=== PATIENT | female | born 1965 | race Two or more races ===

== ENCOUNTER 2021-11-10 16:16 | Emergency (ER) | payer OTHER, SELFPAY ==
--- NOTE | ~2021-11-10 | XR_ITS ---
EXAMINATION: XR knee RT 4V, XR knee LT 4V CLINICAL INFORMATION: Reason for Exam knee pain COMPARISON: None. TECHNIQUE: 4 views bilateral knees FINDINGS: Right knee: Assessment on the lateral view is somewhat limited due to obliquity of the projection. No large joint effusion. No acute fracture or dislocation. Moderate medial compartment joint space narrowing with subchondral sclerosis and abundant tricompartmental osteophyte formation. No osseous lesion. Left knee: Limited assessment on the lateral view due to overlying soft tissue. No large joint effusion. No fracture or dislocation. Severe medial compartment joint space narrowing with mgvn-ne-tqty apposition, subchondral sclerosis, subchondral cystic change, and abundant tricompartmental osteophyte formation. No osseous lesion. XR/XR knee LT 4V IMPRESSION: 1. No acute osseous injury identified. No large knee joint effusions. 2. Advanced tricompartmental knee joint osteoarthropathy bilaterally left slightly worse than right.
--- NOTE | ~2021-11-10 | XR_ITS ---
EXAMINATION: XR knee RT 4V, XR knee LT 4V CLINICAL INFORMATION: Reason for Exam knee pain COMPARISON: None. TECHNIQUE: 4 views bilateral knees FINDINGS: Right knee: Assessment on the lateral view is somewhat limited due to obliquity of the projection. No large joint effusion. No acute fracture or dislocation. Moderate medial compartment joint space narrowing with subchondral sclerosis and abundant tricompartmental osteophyte formation. No osseous lesion. Left knee: Limited assessment on the lateral view due to overlying soft tissue. No large joint effusion. No fracture or dislocation. Severe medial compartment joint space narrowing with gzvh-pk-hjpm apposition, subchondral sclerosis, subchondral cystic change, and abundant tricompartmental osteophyte formation. No osseous lesion. XR/XR knee RT 4V IMPRESSION: 1. No acute osseous injury identified. No large knee joint effusions. 2. Advanced tricompartmental knee joint osteoarthropathy bilaterally left slightly worse than right.
[2021-11-10 16:29] VITALS: BP 152/94; PULSE 88; RESP 18; TEMP 36.1; O2SAT 96; BMI 52.8
--- NOTE | 2021-11-10 18:28 | ED_ITS ---
HPI - Extremity Injury (Lower) General Chief Complaint: Extremity Injury, Lower Stated Complaint: foot pain Time Seen by Provider: 11/10/21 18:27 Source: patient Mode of arrival: ambulatory Limitations: no limitations History of Present Illness HPI Narrative: 56-year-old female with history of morbid obesity and hyperlipidemia presents to the ER for evaluation bilateral knee pain for the last few weeks. She states she always has some underlying knee issues because of her weight but the pain has been worse for the last couple of weeks. No known injury or trauma. She states she has enlarging bumps just below her left knee and they are becoming more painful. MD complaint: knee injury Related Data Previous Rx's Medication Instructions Recorded acetaminophen 650 mg 650 mg PO Q8H PRN pain #30 tabs 11/10/21 tablet,extended release (Tylenol Arthritis Pain) naproxen 500 mg tablet 500 mg PO BID PRN pain #20 tabs 11/10/21 Allergies Allergy/AdvReac Type Severity Reaction Status Date / Time No Known Allergies Allergy Verified 11/10/21 16:28 Review of Systems Review of Systems: Constitutional: No Fever, No Chills Cardiovascular: No Chest Pain, No SOB Respiratory: No Cough, No Sputum Gastrointestinal: No Nausea, No Vomiting Musculoskeletal: + joint pain, No Myalgias Skin: +Skin Lesions, No rash Neuro: No Weakness, No Numbness, No Dizziness, No Headache Psych: + Anxiety/Panic, No Depression Heme/Lymph: No Bruising, No Lymphadenopathy PMFSH Social History Social History Advance Directives: No Advance Directives Information Provided: No Physical Exam Vital Signs: Vital Signs: Last Vital Signs Temp 97.0 F 11/10/21 16:29 Pulse 88 11/10/21 16:29 Resp 18 11/10/21 16:29 BP 152/94 H 11/10/21 16:29 Pulse Ox 96 11/10/21 16:29 O2 Del Method 11/10/21 16:29 BMI result Body Mass Index 52.8 Appearance: Alert. Oriented X3. No acute distress. HEENT: normal inspection CVS: Normal heart rate and rhythm. Pulses normal. Respiratory: No respiratory distress. Skin: Skin warm and dry. Normal skin color. Normal skin turgor. No rashes. Extremities: morbidly obese lower extremities, normal active and passive ROM of bilateral knees. unable to appreciate any joint laxity. on palpation of the left lower leg there are multiple hard, tender nodules ranging <1cm to 2cm. no overlying erythema, no induration or fluctuance. Neuro: Oriented X 3. No motor deficit. No sensory deficit. steady gait Course Course Course Narrative: 56-year-old female with history of morbid obesity and hyperlipidemia presenting to the ER for bilateral nontraumatic knee pain. X-rays consistent with tricompartmental osteoarthritis. She has full range of motion. She is ambulatory. Few small and mildly tender nodules on her lower leg, unclear etiology. no evidence of infection. Will refer to orthopedics and her PCP for further evaluation. We discussed weight loss and conservative management with NSAID and extra strength tylenol. stable for d/c home Discharge Plan Discharge Clinical Impression: Osteoarthritis of both knees Patient Disposition: Home, Self-Care Instructions: Knee Pain (ED) Additional Instructions: Your x-ray today showed no acute osseous injury identified. No large knee joint effusions. Advanced tricompartmental knee joint osteoarthropathy bilaterally left slightly worse than right recommend following up with the orthopedic group listed below take the prescribed medications as directed If you develop new or worsening symptoms call 911 or come back to the ER for further evaluation. Jean radiograf?a de hoy mostr? no se identific? lesi?n ?sea aguda. No hubo grandes derrames en la articulaci?n de la rodilla. Osteoartropat?a tricompartimental avanzada de la articulaci?n de la rodilla bilateralmente izquierda ligeramente peor que la derecha recomienda hacer un seguimiento con el avelina ortop?dico que se detalla a continuaci?n shawna los medicamentos recetados seg?n las indicaciones Si desarrolla s?ntomas nuevos o que empeoran, llame al 911 o regrese a la lashaun de emergencias para brittnee evaluaci?n adicional. Prescriptions: New naproxen 500 mg tablet 500 mg PO BID PRN (Reason: pain) Qty: 20 0RF acetaminophen [Tylenol Arthritis Pain] 650 mg tablet extended release 650 mg PO Q8H PRN (Reason: pain) Qty: 30 0RF Ref[place]: [facility] [place] Group] ( bilateral knee osteoarthritis) Print Language: [place]
== END 2021-11-10 19:30 | disposition home or self-care (01) ==
PROVIDERS: Emergency Provider Emergency Medicine
DX: M17.0 Bilateral primary osteoarthritis of knee (principal); Z79.899 Other long term (current) drug therapy
CPT/HCPCS: 73564; 99282; 99283

== ENCOUNTER 2021-11-19 12:36 | Outpatient (REF) | payer OTHER, SELFPAY ==
--- NOTE | ~2021-11-19 | XR_ITS ---
EXAMINATION: XR KNEE AP STANDING. XR knee, bilateral CLINICAL INFORMATION: Bilateral knee pain COMPARISON: 11/10/2021 TECHNIQUE: AP bilateral standing view of the knees was obtained. [place] views of each knee. XR/XR knee standing BI FINDINGS/IMPRESSION: Redemonstration of the tricompartmental osteoarthritis of both knees, severe in the patellofemoral and medial compartments. No new abnormality.
--- NOTE | ~2021-11-19 | XR_ITS ---
EXAMINATION: XR KNEE AP STANDING. XR knee, bilateral CLINICAL INFORMATION: Bilateral knee pain COMPARISON: 11/10/2021 TECHNIQUE: AP bilateral standing view of the knees was obtained. [place] views of each knee. XR/XR knee RT 1V FINDINGS/IMPRESSION: Redemonstration of the tricompartmental osteoarthritis of both knees, severe in the patellofemoral and medial compartments. No new abnormality.
--- NOTE | ~2021-11-19 | XR_ITS ---
EXAMINATION: XR KNEE AP STANDING. XR knee, bilateral CLINICAL INFORMATION: Bilateral knee pain COMPARISON: 11/10/2021 TECHNIQUE: AP bilateral standing view of the knees was obtained. [place] views of each knee. XR/XR knee LT 1V FINDINGS/IMPRESSION: Redemonstration of the tricompartmental osteoarthritis of both knees, severe in the patellofemoral and medial compartments. No new abnormality.
== END 2021-11-19 12:37 | disposition home or self-care (01) ==
LOC: HO.HOSX 12:36
PROVIDERS: Visit Provider Physician Assistant
DX: M17.0 Bilateral primary osteoarthritis of knee (principal); E66.01 Morbid (severe) obesity due to excess calories
CPT/HCPCS: 73560; 73565; 99202

== ENCOUNTER 2022-02-04 22:04 | Inpatient (IN) | payer OTHER, SELFPAY ==
--- NOTE | ~2022-02-04 | US_ITS ---
EXAMINATION: US ABDOMEN LIMITED CLINICAL INFORMATION: Possible intravenous cava thrombosis on CT scan. COMPARISON: CT scan the abdomen and pelvis dated 02/05/2022. TECHNIQUE: Limited 2-D grayscale and Doppler ultrasound images of the abdomen were obtained. There is limitation to the study secondary to patient body habitus. US/US abdomen limited FINDINGS/IMPRESSION: The proximal inferior vena cava appears patent with venous waveforms. The infrarenal segment appears to have been the region of concern on the previous CT scan, but was suboptimally evaluated. If clinically indicated this could be monitored for change with contrast-enhanced CT scan of the abdomen and pelvis with delayed imaging as indicated.
--- NOTE | ~2022-02-04 | US_ITS ---
EXAMINATION: US PELVIS CLINICAL INFORMATION: Vaginal bleeding. COMPARISON: CT scan of the abdomen and pelvis dated 02/05/2022. TECHNIQUE: Ultrasound of the pelvis is performed using both transabdominal and transvaginal transducers along with Doppler. Transvaginal imaging is performed due to inadequate visualization transabdominally. FINDINGS: Uterus: Anteverted/anteflexed measuring 13.8 x 8.0 x 8.5 cm. The endometrium is heterogeneous and hypoechoic measuring up to 3.0 cm at the level the fundus (image 14, series 1). Doppler showed no abnormal vascular flow. The cervix is closed without abnormality. Minimal free fluid in the pelvic cul-de-sac. Right ovary measures 3.0 x 2.3 x 2.5 cm. Volume 9 mL. Mild free fluid in the right adnexa. Left ovary measures 4.0 x 3.2 x 3.1 cm. Volume 20.1 mL. Urinary bladder: Minimally distended without focal abnormality. US/US pelvic and transvaginal IMPRESSION: 1. Irregular endometrium. No definitive enhancing mass. Sonohysterography and biopsy should be considered. 2. Mild free fluid in the cul-de-sac and right adnexa could be physiologic or secondary to known trace ascites.
--- NOTE | ~2022-02-04 | CT_ITS ---
EXAMINATION: CT ABDOMEN AND PELVIS WITH CONTRAST CLINICAL INFORMATION: IVC thrombus delayed imaging. COMPARISON: CT abdomen pelvis 02/05/2022. TECHNIQUE: Multidetector volumetric images were obtained from the superior aspect of the liver through the pubic symphysis following administration 85 mL of Omnipaque 350 intravenous contrast. Sagittal and coronal reformatted images were obtained on the technologist's workstation. Oral contrast: No This CT examination was performed using dose optimization techniques as appropriate, variously including the following: *Automated exposure control *Adjustment of mA and/or kV according to patient size (this includes techniques or standardized protocols for targeted exams where dose is matched to indication/reason for exam; i.e. extremities or head) *Use of iterative reconstruction technique DLP: 1631 mGy-cm. FINDINGS: LUNG BASES: There are multiple accgwpag-oc-lmqeb masses seen in both lower lobes. The heart size is normal. LIVER, GALLBLADDER, AND BILIARY TREE: The liver is normal in size, shape, and attenuation. No focal hepatic lesion or biliary ductal dilatation is present. The gallbladder is contracted with no radiopaque gallstones or wall thickening. There is trace perihepatic fluid collection. PANCREAS: Unremarkable. SPLEEN: There is perisplenic fluid collection. ADRENAL GLANDS: Unremarkable. KIDNEYS AND URETERS: The kidneys are normal in size, shape, and attenuation. No hydronephrosis, hydroureter, or calculi seen. No perinephric stranding. BLADDER: Unremarkable. GASTROINTESTINAL TRACT: There is scattered stool and gas seen throughout the colon without any significant distention. The small bowel loops are normal caliber. Appendix is not visualized. There is mild haziness in the peritoneal likely secondary to edema or mild ascites. ABDOMINAL WALL: No significant hernia is appreciated. LYMPH NODES: There are abnormal retroperitoneal matted lymphadenopathy difficult to measure size. The largest left retroperitoneal lymph node measures 2.1 x 1.6 cm axial image 36/3. VASCULAR: The abdominal aorta is normal caliber. There is a large thrombus seen in the right and left common iliac veins extending into the mid IVC just below the left and right renal veins. PELVIC VISCERA: Also visualized there is bilateral inguinal and pelvic wall lymphadenopathy. The largest left inguinal lymph node measures 2.8 cm on axial image 84/3 and a left iliac lymph node measuring 3.2 x 2.0 seen. There is a large hypodense mass within the endometrial canal most likely endometrial cancer unless proven otherwise. The uterus is enlarged measuring 13.1 x 8.5 x 8.7 cm OSSEOUS STRUCTURES: No aggressive lytic or sclerotic process seen. There is mild ventral spondylosis. CT/CT abdomen pelvis w IV con IMPRESSION: Enlarged uterus with a hypodense mass within the endometrial canal suggestive of endometrial cancer unless proven otherwise. There is extensive abnormal retroperitoneal and pelvic lymphadenopathy. No change from 02/05/2022 There are multiple moderate-sized metastatic deposits in both lower lobes. There is thrombus visualized in both common iliac veins extending to mid IVC just below the renal veins. It is similar to previous study 02/05/2022. There is mild free fluid in the pelvis with mild peritoneal haziness. Fleischner guidelines were followed.
--- NOTE | ~2022-02-04 | CT_ITS ---
EXAMINATION: CT ANGIOGRAM OF THE CHEST; CONTRAST-ENHANCED CT OF THE ABDOMEN AND PELVIS INDICATION: Metastatic lung lesion with right flank pain, shortness of breath COMPARISON: Chest x-ray 02/04/2022 TECHNIQUE: 100 mL Omnipaque 350 IV contrast was utilized. Multidetector helical imaging was performed through the chest per PE protocol. Coronal, sagittal, and MIP images of the chest were created. In addition, multidetector helical imaging was performed through the abdomen and pelvis. Coronal and sagittal reformatted images were created at the technologist workstation. DOSE LOWERING TECHNIQUES: This CT examination was performed using dose optimization techniques as appropriate, variously including the following: - Automated exposure control - Adjustment of mA and/or kV according to patient size (this includes techniques or standardized protocols for targeted exams were dose is matched to indication/reason for exam; i.e. extremities or head) - Use of iterative reconstruction technique DLP: 1851 mGy-cm FINDINGS: Chest: Evaluation is suboptimal due to respiratory motion artifact and bolus timing. While no central pulmonary embolus is seen, the segmental and subsegmental vessels are not adequately evaluated, and therefore emboli at these levels cannot be excluded. There are numerable masses and nodules throughout both lungs, largest at the lung bases measuring up to greater than 5 cm in diameter; overall appearance is most suspicious for metastatic disease. No pneumothorax or pleural effusion. Visualized thyroid gland is unremarkable. There are borderline enlarged subcarinal and AP window lymph nodes, along with mildly prominent bilateral hilar lymph nodes. Cardiac size is within normal limits; no pericardial effusion. The aorta is unremarkable. No axillary lymphadenopathy is present. Degenerative changes are noted in the spine. Abdomen/Pelvis: Suboptimal assessment due to motion artifact. The liver is homogeneous in attenuation without intrahepatic biliary ductal dilatation. The gallbladder is unremarkable. The spleen, pancreas, and adrenal glands are within normal limits. Bilateral nephrograms are symmetric. No hydronephrosis. No obstructing renal or ureteral calculi are present. Small hypodensity in the mid left kidney is suggestive of a cyst, though is too small to definitively characterize. The urinary bladder is unremarkable. There is a thickened appearance of the uterine endometrium towards the fundus, raising suspicion for malignancy given the additional findings in the chest and abdomen. Colonic diverticulosis is noted. No evidence of bowel obstruction or convincing bowel wall thickening. Small amount of free fluid is present in the abdomen. No free air is identified. There is intraluminal hypoattenuation in the bilateral common iliac veins and infrarenal IVC, concerning for intraluminal thrombus. There are enlarged bilateral inguinal lymph nodes measuring up to 2.2 cm in short axis dimension on the left. There is confluent retroperitoneal lymphadenopathy adjacent to the aorta and IVC, in total measuring up to approximately 4.9 x 2.9 cm. There is bilateral pelvic sidewall lymphadenopathy, larger on the right measuring up to 2.2 cm in short axis dimension. Multilevel degenerative endplate changes are present in the spine. CT/CT angio chest PE protocol IMPRESSION: 1. Suboptimal assessment of the pulmonary arteries due to respiratory motion artifact and bolus timing. While no central pulmonary embolus is seen, the segmental and subsegmental vessels are not adequately evaluated, and therefore emboli at these levels cannot be excluded. 2. Innumerable pulmonary masses and nodules throughout both lungs, most suspicious for metastatic disease. 3. Retroperitoneal, pelvic sidewall, and inguinal lymphadenopathy, most suspicious for [place] metastases. Borderline enlarged subcarinal and AP window lymph nodes also noted in the chest. 4. Thickened appearance of the uterine endometrium towards the fundus, raising suspicion for endometrial malignancy given the additional findings in the chest and abdomen. Evaluation with pelvic ultrasound is recommended. 5. Intraluminal hypoattenuation in the bilateral common iliac veins and infrarenal IVC, concerning for intraluminal thrombus. Assessment with vascular ultrasound is recommended. 6. Small amount of free fluid in the abdomen. This critical result was discussed with Dr. Pollard on 02/05/2022 2:16 AM, and it was ascertained that the content and urgency of the report was understood at the time of direct communication.
--- NOTE | ~2022-02-04 | XR_ITS ---
EXAMINATION: XR CHEST CLINICAL INFORMATION: Right-sided chest pain COMPARISON: None TECHNIQUE: Frontal view of the chest was obtained. FINDINGS: Lung volumes are symmetric. There is extensive, relatively nodular opacification throughout the lungs, most severe towards the lung bases. No evidence of pneumothorax or pleural effusion. The cardiomediastinal contour is unremarkable. Degenerative changes are noted in the spine. XR/XR chest 1V IMPRESSION: Extensive, relatively nodular opacification throughout the lungs, most severe towards the lung bases. Differential considerations include metastatic disease or widespread infectious/inflammatory etiology. If no prior imaging is available, contrast-enhanced CT is advised for further evaluation.
--- NOTE | ~2022-02-04 | NM_ITS ---
EXAMINATION: PULMONARY PERFUSION STUDY CLINICAL INFORMATION: Chest pain shortness of breath respiratory failure with hypoxia question pulmonary embolism. COMPARISON: A chest radiograph dated 02/04/[address] angiogram of the chest and CT scan of the abdomen and pelvis, both dated 02/05/2022, the same date as this lung scan, are available for comparison. TECHNIQUE: Following the intravenous administration of 4.0 mCi Tc-99m MAA an 8-view perfusion study was performed using a dual detector gamma scintillation camera. No ventilation images were obtained. FINDINGS: Perfusion images: No segmental perfusion defects are present. There is marked heterogeneity within both lungs, most severely in the lower lobes bilaterally. Perfusion abnormalities appear to be predominantly rounded in appearance and none are anatomic or subsegmental in appearance. The CT angiogram of the chest shows extensive rounded metastasis throughout all lung soler. NM/NM pul perfusion IMPRESSION: Low probability of pulmonary embolism. Heterogeneity diffusely in both lungs is most consistent with diffuse metastatic disease visible on contemporaneous CT scans.
[2022-02-04 22:24] VITALS: BP 157/104; PULSE 116; RESP 20; TEMP 37.7; O2SAT 91; BMI 50.9
--- NOTE | 2022-02-04 23:32 | ECG_ITS ---
Test Reason : PAIN Blood Pressure : / mmHG Vent. Rate : 118 BPM Atrial Rate : 118 BPM P-R Int : 140 ms QRS Dur : 066 ms QT Int : 288 ms P-R-T Axes : 061 070 047 degrees QTc Int : 403 ms Sinus tachycardia Otherwise normal ECG No previous ECGs available Referred By: Generic ED Physician Electronically Signed By:Louis Jones
[2022-02-04 23:50] LABS: PLT CLUMP 1; WBC ABN SCTR FOR CBC 1
[2022-02-04 23:52] LABS: Hematocrit 33.7 % (37.0-47.0); Mean Corpuscular HGB Conc 32.6 g/dl (31.0-35.0); Mean Corpuscular Hemoglobin 24.2 pg (27.0-33.0); Mean Corpuscular Volume 74.1 fL (80.0-98.0); Mean Platelet Volume 10.3 fL (9.4-12.3); Red Blood Count 4.55 X10*6/uL (4.20-5.50); Red Cell Distribution Width 16.4 % (11.0-16.0)
[2022-02-04 23:58] LABS: Platelet Count 431 X10*3/uL (160-400); White Blood Count 16.3 X10*3/uL (4.8-10.8)
[2022-02-05] VITALS (10 sets, daily range): BP systolic 127–179; BP diastolic 63–97; PULSE 98–119; RESP 13–40; TEMP 36.6–37.9; O2SAT 91–98; BMI 52.4
--- NOTE | 2022-02-05 00:08 | ED_ITS ---
HPI - Chest Pain General Chief Complaint: Chest Pain Stated Complaint: back chest and leg pain Time Seen by Provider: 02/05/22 00:01 Source: patient Mode of arrival: ambulatory Limitations: no limitations History of Present Illness HPI narrative: Patient 56 years old with no diagnosed past medical history has not seen a PCP for a while comes here for 1 month of cough which is getting worse with shortness of breath body aches back pain and vaginal bleeding. Patient does have bright red vaginal bleeding no blood clots has lower abdominal pain no distension also having back pain overall she does not feel good had low-grade fever on arrival coughing with mucopurulent expectoration which is getting worse the last few days patient denies any nausea vomiting flank pain urinary complaints no melena no weight loss Related Data Previous Rx's Medication Instructions Recorded naproxen 500 mg tablet 500 mg PO BID PRN pain #20 tabs 11/10/21 acetaminophen 650 mg 650 mg PO Q8H PRN pain #30 tabs 12/04/21 tablet,extended release (Tylenol Arthritis Pain) Allergies Allergy/AdvReac Type Severity Reaction Status Date / Time No Known Allergies Allergy Verified 02/04/22 22:30 Review of Systems Review of Systems: Yes all other systems are reviewed and are negative PMFSH Past Medical History Medical History High cholesterol Social History Social History Smoked in Last 30 Days: No Advance Directives: No Advance Directives Information Provided: Yes Current occupational status: unemployed Current occupation: rt hand Physical Exam Vital Signs: Vital Signs: Last Vital Signs Temp 98.1 F 02/05/22 04:20 Pulse 116 H 02/05/22 04:20 Resp 34 H 02/05/22 04:20 BP 162/87 H 02/05/22 04:20 Pulse Ox 98 02/05/22 04:20 O2 Del Method 02/05/22 04:20 O2 Flow Rate 2 02/05/22 04:20 BMI result Body Mass Index 50.9 Appearance: Alert. Oriented X3. Looks sick febrile to touch Eyes: PERRLA, No Nystagmus ENT: Pharynx normal. Oral Mucosa moist Neck: Normal inspection. Neck supple. CVS: Normal heart rate and rhythm. Pulses normal. Respiratory: Mild respiratory distress. Equal air entry bilateral, bilateral crackles both lower lobes Abdomen: Soft , slight discomfort suprapubic area. Bowel sounds are present, no mass palpable, no CVA tenderness Skin: Skin warm and dry. Normal skin color. Normal skin turgor. Extremities: No lower extremity edema. No calf tenderness Neuro: Oriented X 3. No motor deficit. No sensory deficit.No cerebellar signs , cranial nerves II-XII intact Medications Administered Discontinued Medications Generic Name Dose Route Start Last Admin Trade Name Freq PRN Reason Stop Dose Admin Sodium Chloride 1,000 mls @ 999 mls/hr 02/05/22 00:31 02/05/22 02:15 Ns IV 02/05/22 01:31 Infused .Q1H1M ONE Infusion Piperacillin Sod/Tazobactam 50 mls @ 100 mls/hr 02/05/22 00:36 02/05/22 02:30 Sod 3.375 gm/ Sodium Chloride IV 02/05/22 01:05 Infused ONCE ONE Infusion Iohexol 100 ml 02/05/22 01:44 02/05/22 01:44 Iohexol 350 Mg/Ml 100 Ml Infus..Btl IV 02/05/22 01:45 100 ml ONCE ONE Administration MDM - Chest Pain MDM Narrative Medical decision making narrative: Patient with diffuse infiltrate cannonball shadows in bilateral lung suggestive of metastatic lung disease with possible infection. CTA chest negative for PE. Abdomen pelvis showed likely uterine cancer with retroperitoneal, inguinal, pelvis lymphadenopathy Metastasis to the lung patient was hypoxic on arrival at 90% at room air IV Zosyn was given for possible secondary infection lactic acid level is 2.1 his likely from inflammation cancer will admit patient for further evaluation Lab Data Attestation: I reviewed the patient's lab results. Result diagrams: 02/04/22 23:45 02/04/22 23:45 Labs: Lab Results 02/04/22 02/04/22 02/04/22 Range/Units 23:45 23:45 23:45 WBC 16.3 H (4.8-10.8) X10*3/uL RBC 4.55 (4.20-5.50) X10*6/uL Hgb 11.0 L (12.0-16.0) g/dl Hct 33.7 L (37.0-47.0) % MCV 74.1 L (80.0-98.0) fL MCH 24.2 L (27.0-33.0) pg MCHC 32.6 (31.0-35.0) g/dl RDW 16.4 H (11.0-16.0) % Plt Count 431 H (160-400) X10*3/uL MPV 10.3 (9.4-12.3) fL Immature Gran % (Auto) Cancelled Neut % (Auto) Cancelled Lymph % (Auto) Cancelled [place] % (Auto) Cancelled Eos % (Auto) Cancelled Baso % (Auto) Cancelled Lymph # (Auto) Cancelled [place] # (Auto) Cancelled Eos # (Auto) Cancelled Baso # (Auto) Cancelled Abs Immat Gran (auto) Cancelled Absolute Neuts (auto) Cancelled Absolute Nucleated RBC 0.000 (0.0-0.012) X10*3/uL Nucleated RBC % (auto) 0.0 (0.0-0.2) /100WBC Neutrophils % (Manual) 87 H (45-73) % Band Neutrophils % 1 L (3-5) % Lymphocytes % (Manual) 6 L (20-40) % Atypical Lymphs % (Man) 1 (0-6) % Monocytes % (Manual) 5 (2-11) % Abs Neuts (Manual) 14.3 H (2.0-8.3) X10*3/uL Lymphocytes # (Manual) 1.0 L (1.2-4.9) X10*3/uL Atyp Lymphs # (Manual) 0.2 x10*3/uL Monocytes # (Manual) 0.8 (0.1-1.2) X10*3/uL Toxic Vacuolation PRESENT Platelet Estimate NORMAL (NORMAL) Large Platelets PRESENT Plt Morphology Comment NOTED RBC Morphology NOTED Polychromasia 1+ (0-2) /OIF Hypochromasia 1+ (5-14) /OIF Microcytosis 1+ (5-14) /OIF Target Cells 1+ (5-14) /OIF [place] Bodies PRESENT Acanthocytes (Spur) 1+ (0-2) /OIF Rouleaux PRESENT PT (10.0-13.1) SEC INR (0.9-1.1) APTT (26.0-36.4) SEC Sodium 137 (135-145) mmol/L Potassium 4.8 (3.3-5.1) mmol/L Chloride 99 (96-108) mmol/L Carbon Dioxide 22 (22-29) mmol/L Anion Gap 21 H (12-20) BUN 16 (9-16) mg/dL Creatinine 0.74 (0.5-1.4) mg/dL Estim Creat Clear Calc 123.1 Estimated GFR > 60 Random Glucose 109 (60-115) mg/dL Lactic Acid (0.5-2.0) mmol/L Lactic Acid F/U @ 2Hr (0.5-2.0) mmol/L Calcium 9.4 (8.4-10.2) mg/dL Total Bilirubin 0.6 (0.0-1.0) mg/dL Direct Bilirubin 0.2 (0.0-0.5) mg/dL AST 16 (5-31) U/L ALT 21 (0-31) U/L Alkaline Phosphatase 66 (39-117) U/L Troponin I High Sens 7.3 (<3.5-17.0) ng/L Total Protein 7.6 (6.5-8.0) g/dL Albumin 3.6 (3.5-5.0) g/dL Influenza Type A (PCR) (Negative) Influenza Type B (PCR) (Negative) RSV RNA Qual (PCR) (Negative) SARS-CoV-2 RNA (RT-PCR) (Negative) 02/05/22 02/05/22 02/05/22 Range/Units 00:41 00:50 00:50 WBC (4.8-10.8) X10*3/uL RBC (4.20-5.50) X10*6/uL Hgb (12.0-16.0) g/dl Hct (37.0-47.0) % MCV (80.0-98.0) fL MCH (27.0-33.0) pg MCHC (31.0-35.0) g/dl RDW (11.0-16.0) % Plt Count (160-400) X10*3/uL MPV (9.4-12.3) fL Immature Gran % (Auto) Neut % (Auto) Lymph % (Auto) [place] % (Auto) Eos % (Auto) Baso % (Auto) Lymph # (Auto) [place] # (Auto) Eos # (Auto) Baso # (Auto) Abs Immat Gran (auto) Absolute Neuts (auto) Absolute Nucleated RBC (0.0-0.012) X10*3/uL Nucleated RBC % (auto) (0.0-0.2) /100WBC Neutrophils % (Manual) (45-73) % Band Neutrophils % (3-5) % Lymphocytes % (Manual) (20-40) % Atypical Lymphs % (Man) (0-6) % Monocytes % (Manual) (2-11) % Abs Neuts (Manual) (2.0-8.3) X10*3/uL Lymphocytes # (Manual) (1.2-4.9) X10*3/uL Atyp Lymphs # (Manual) x10*3/uL Monocytes # (Manual) (0.1-1.2) X10*3/uL Toxic Vacuolation Platelet Estimate (NORMAL) Large Platelets Plt Morphology Comment RBC Morphology Polychromasia /OIF Hypochromasia /OIF Microcytosis /OIF Target Cells /OIF [place] Bodies Acanthocytes (Spur) /OIF Rouleaux PT 14.0 H (10.0-13.1) SEC INR 1.2 H (0.9-1.1) APTT 23.6 L (26.0-36.4) SEC Sodium (135-145) mmol/L Potassium (3.3-5.1) mmol/L Chloride (96-108) mmol/L Carbon Dioxide (22-29) mmol/L Anion Gap (12-20) BUN (9-16) mg/dL Creatinine (0.5-1.4) mg/dL Estim Creat Clear Calc Estimated GFR Random Glucose (60-115) mg/dL Lactic Acid 2.1 H* (0.5-2.0) mmol/L Lactic Acid F/U @ 2Hr (0.5-2.0) mmol/L Calcium (8.4-10.2) mg/dL Total Bilirubin (0.0-1.0) mg/dL Direct Bilirubin (0.0-0.5) mg/dL AST (5-31) U/L ALT (0-31) U/L Alkaline Phosphatase (39-117) U/L Troponin I High Sens (<3.5-17.0) ng/L Total Protein (6.5-8.0) g/dL Albumin (3.5-5.0) g/dL Influenza Type A (PCR) NEGATIVE (Negative) Influenza Type B (PCR) NEGATIVE (Negative) RSV RNA Qual (PCR) NEGATIVE (Negative) SARS-CoV-2 RNA (RT-PCR) NEGATIVE (Negative) 02/05/22 Range/Units 04:32 WBC (4.8-10.8) X10*3/uL RBC (4.20-5.50) X10*6/uL Hgb (12.0-16.0) g/dl Hct (37.0-47.0) % MCV (80.0-98.0) fL MCH (27.0-33.0) pg MCHC (31.0-35.0) g/dl RDW (11.0-16.0) % Plt Count (160-400) X10*3/uL MPV (9.4-12.3) fL Immature Gran % (Auto) Neut % (Auto) Lymph % (Auto) [place] % (Auto) Eos % (Auto) Baso % (Auto) Lymph # (Auto) [place] # (Auto) Eos # (Auto) Baso # (Auto) Abs Immat Gran (auto) Absolute Neuts (auto) Absolute Nucleated RBC (0.0-0.012) X10*3/uL Nucleated RBC % (auto) (0.0-0.2) /100WBC Neutrophils % (Manual) (45-73) % Band Neutrophils % (3-5) % Lymphocytes % (Manual) (20-40) % Atypical Lymphs % (Man) (0-6) % Monocytes % (Manual) (2-11) % Abs Neuts (Manual) (2.0-8.3) X10*3/uL Lymphocytes # (Manual) (1.2-4.9) X10*3/uL Atyp Lymphs # (Manual) x10*3/uL Monocytes # (Manual) (0.1-1.2) X10*3/uL Toxic Vacuolation Platelet Estimate (NORMAL) Large Platelets Plt Morphology Comment RBC Morphology Polychromasia /OIF Hypochromasia /OIF Microcytosis /OIF Target Cells /OIF [place] Bodies Acanthocytes (Spur) /OIF Rouleaux PT (10.0-13.1) SEC INR (0.9-1.1) APTT (26.0-36.4) SEC Sodium (135-145) mmol/L Potassium (3.3-5.1) mmol/L Chloride (96-108) mmol/L Carbon Dioxide (22-29) mmol/L Anion Gap (12-20) BUN (9-16) mg/dL Creatinine (0.5-1.4) mg/dL Estim Creat Clear Calc Estimated GFR Random Glucose (60-115) mg/dL Lactic Acid (0.5-2.0) mmol/L Lactic Acid F/U @ 2Hr 1.7 (0.5-2.0) mmol/L Calcium (8.4-10.2) mg/dL Total Bilirubin (0.0-1.0) mg/dL Direct Bilirubin (0.0-0.5) mg/dL AST (5-31) U/L ALT (0-31) U/L Alkaline Phosphatase (39-117) U/L Troponin I High Sens (<3.5-17.0) ng/L Total Protein (6.5-8.0) g/dL Albumin (3.5-5.0) g/dL Influenza Type A (PCR) (Negative) Influenza Type B (PCR) (Negative) RSV RNA Qual (PCR) (Negative) SARS-CoV-2 RNA (RT-PCR) (Negative) Discharge Plan Discharge Clinical Impression: Metastatic cancer Patient Disposition: Admitted As Inpatient
[2022-02-05 00:10] LABS: Atypical Lymph Absolute Manual 0.2 x10*3/uL; Atypical Lymphs Percent Manual 1 % (0-6); Band Neutrophils Percent 1 % (3-5); Lymphocytes Percent Manual 6 % (20-40); Monocytes Absolute Manual 0.8 X10*3/uL (0.1-1.2); Monocytes Percent Manual 5 % (2-11); Neutrophils Absolute Manual 14.3 X10*3/uL (2.0-8.3); Neutrophils Percent Manual 87 % (45-73)
[2022-02-05 00:11] LABS: RBC Morphology NOTED
[2022-02-05 00:12] LABS: Acanthocytes 1+ (0-2) /OIF; Howell Jolly Bodies PRESENT; Hypochromasia 1+ (5-14) /OIF; Large Platelet PRESENT; Microcytosis 1+ (5-14) /OIF; Platelet Estimate NORMAL (NORMAL); Platelet Morphology Comment NOTED; Polychromasia 1+ (0-2) /OIF; Rouleau PRESENT; Target Cells 1+ (5-14) /OIF; Toxic Vacuolation PRESENT
[2022-02-05 00:15] LABS: Anion Gap 21 (12-20); Blood Urea Nitrogen 16 mg/dL (9-16); Calcium 9.4 mg/dL (8.4-10.2); Carbon Dioxide 22 mmol/L (22-29); Chloride 99 mmol/L (96-108); Creatinine Clr Calc Pharmacy 123.1; Estimated Glomerular Filt Rate > 60; Glucose Random 109 mg/dL (60-115); Potassium 4.8 mmol/L (3.3-5.1); Sodium 137 mmol/L (135-145)
[2022-02-05 00:21] LABS: Troponin-I High Sensitivity 7.3 ng/L (<3.5-17.0)
[2022-02-05] MEDS: Piperacillin Sodium/Tazobactam 3.375 GM in 0.9 % Sodium Chloride 50 ML IV (00:58)
[2022-02-05] MEDS: 0.9 % Sodium Chloride 1,000 ML 999 ML IV (00:58)
[2022-02-05 01:04] LABS: Alanine Aminotransferase 21 U/L (0-31); Albumin Level 3.6 g/dL (3.5-5.0); Alkaline Phosphatase 66 U/L (39-117); Aspartate Amino Transferase 16 U/L (5-31); Bilirubin Direct 0.2 mg/dL (0.0-0.5); Bilirubin Total 0.6 mg/dL (0.0-1.0); Total Protein 7.6 g/dL (6.5-8.0)
[2022-02-05 01:05] LABS: Lactic Acid 2.1 mmol/L (0.5-2.0)
[2022-02-05 01:11] LABS: INTERNATIONAL NORM RATIO 1.2 (0.9-1.1)
[2022-02-05 01:13] LABS: Partial Thromboplastin Time 23.6 SEC (26.0-36.4)
[2022-02-05 01:35] LABS: Influenza A PCR NEGATIVE (Negative); Influenza B PCR NEGATIVE (Negative); Resp Syncy Virus RNA Qual PCR NEGATIVE (Negative); SARS COV2 PCR INHOUSE NEGATIVE (Negative)
[2022-02-05] MEDS: iohexoL 350 MG/ML 100 ML INFUS..BTL IV (01:44)
[2022-02-05 02:47] LABS: Reflex Lactate? Lactic Acid Added
[2022-02-05 04:48] LABS: ~Lactic Acid-LAB USE ONLY 1.7 mmol/L (0.5-2.0)
--- NOTE | 2022-02-05 06:03 | P.HPHOSP_ITS ---
History of Present Illness Date of Service: 02/05/22 Chief Complaint: chest pain this is a 56-year-old female who denies any past medical history presents to the hospital with complaints of chest pain radiating to the abdomen and legs. Patient reports that her symptoms started 3-4 days ago. She has also had upper respiratory symptoms including cough, increased sputum production. She is also complaining of feeling febrile having shortness of breath and chills. On further review of system patient is reporting vaginal bleed for the past 5 months. Intermittent. Patient is postmenopausal. She describes an chest pain as air stuck in the chest. She denies any recent weight loss. Patient reports lower abdominal pain that has been going on for the past 5 months as well. Denies any nausea vomiting, has constipation, denies any urinary symptoms, no lower extremity edema p.r.n. On arrival to the ED patient found to have a temperature of 99.1 degrees, respiratory rate of 20, heart rate of 116, blood pressure 157/104, respiratory rate currently in the 30s . Patient reported to have become hypoxic dropping to the mid 70s on room air. Labs are significant for WBC count of 16.3, INR of 1.2, lactic acid of 2.1 improved after IV fluids Imaging including CT angiogram of the chest as well as abdomen pelvic CT shows poor study for PE but patient has innumerable pulmonary masses and nodules throughout both lungs most suspicious for metastatic disease, she also has retroperitoneal, pelvic sidewall, and we lymphadenopathy most suspicious for bismark metastasis. Thickened appearance of the uterine endometrium towards the fundus raising suspicion for endometrial malignancy, patient also has intralumin al air hypoattenuation in the bilateral common iliac veins and in for all renal IVC concerning for intraluminal thrombus Review of Systems Review of Systems: Yes all other systems are reviewed and are negative [facility] Medical History (Updated 02/05/22 @ 06:14 by Boo Alejandro MD) High cholesterol Family History (Updated 02/05/22 @ 06:11 by Boo Alejandro MD) Other No family history of cancer Surgical History (Updated 02/05/22 @ 06:13 by Boo Alejandro MD) No pertinent past surgical history Social History (Updated 02/05/22 @ 06:13 by Boo Alejandro MD) Alcohol intake: never Patient Tobacco Use Status: Never used Tobacco Smoked in Last 30 Days: No Use of substances other than those prescribed or required for medical reasons: No Advance Directives: No Advance Directives Information Provided: Yes Current occupational status: unemployed Current occupation: rt hand Meds Allergies Allergy/AdvReac Type Severity Reaction Status Date / Time No Known Allergies Allergy Verified 02/04/22 22:30 Physical Exam Vital Signs and Narrative: Vital Signs: Last Vital Signs Temp 98.1 F 02/05/22 04:20 Pulse 116 H 02/05/22 04:20 Resp 34 H 02/05/22 04:20 BP 162/87 H 02/05/22 04:20 Pulse Ox 98 02/05/22 04:20 O2 Del Method 02/05/22 04:20 O2 Flow Rate 2 02/05/22 04:20 BMI result Body Mass Index 50.9 Const: General: cooperative and no acute distress Orientation/cons ciousness: patient oriented x3 Eyes: General: appearance normal, both eyes and all related structures Resp: Other: Diminished breath sounds, tachypneic Cardio: Rate: regular rate Rhythm: regular rhythm GI: Other: Obese abdomen Palpation (GI): Soft to palpation Auscultation: normal bowel sounds Skin: General skin exam: no rashes or lesions noted Neuro: General: patient oriented x3 Cognition (Neuro): normal cognition Extrem: General: Yes normal to inspection and Yes no pedal edema Results Labs CBC and Chem 7: 02/04/22 23:45 02/04/22 23:45 Labs: Laboratory Results - last 24 hr 02/04/22 02/04/22 02/04/22 23:45 23:45 23:45 MCV 74.1 L MCH 24.2 L MCHC 32.6 RDW 16.4 H Plt Count 431 H MPV 10.3 Immature Gran % (Auto) Cancelled Neut % (Auto) Cancelled Lymph % (Auto) Cancelled [place] % (Auto) Cancelled Eos % (Auto) Cancelled Baso % (Auto) Cancelled Lymph # (Auto) Cancelled [place] # (Auto) Cancelled Eos # (Auto) Cancelled Baso # (Auto) Cancelled Abs Immat Gran (auto) Cancelled Absolute Neuts (auto) Cancelled Absolute Nucleated RBC 0.000 Nucleated RBC % (auto) 0.0 Neutrophils % (Manual) 87 H Band Neutrophils % 1 L Lymphocytes % (Manual) 6 L Atypical Lymphs % (Man) 1 Monocytes % (Manual) 5 Abs Neuts (Manual) 14.3 H Lymphocytes # (Manual) 1.0 L Atyp Lymphs # (Manual) 0.2 Monocytes # (Manual) 0.8 Toxic Vacuolation PRESENT Platelet Estimate NORMAL Large Platelets PRESENT Plt Morphology Comment NOTED RBC Morphology NOTED Polychromasia 1+ (0-2) Hypochromasia 1+ (5-14) Microcytosis 1+ (5-14) Target Cells 1+ (5-14) [place] Bodies PRESENT Acanthocytes (Spur) 1+ (0-2) Rouleaux PRESENT PT INR APTT Anion Gap 21 H Estim Creat Clear Calc 123.1 Estimated GFR > 60 Random Glucose 109 Lactic Acid Lactic Acid F/U @ 2Hr Calcium 9.4 Total Bilirubin 0.6 Direct Bilirubin 0.2 AST 16 ALT 21 Alkaline Phosphatase 66 Troponin I High Sens 7.3 Total Protein 7.6 Albumin 3.6 Influenza Type A (PCR) Influenza Type B (PCR) RSV RNA Qual (PCR) SARS-CoV-2 RNA (RT-PCR) 02/05/22 02/05/22 02/05/22 00:41 00:50 00:50 MCV MCH MCHC RDW Plt Count MPV Immature Gran % (Auto) Neut % (Auto) Lymph % (Auto) [place] % (Auto) Eos % (Auto) Baso % (Auto) Lymph # (Auto) [place] # (Auto) Eos # (Auto) Baso # (Auto) Abs Immat Gran (auto) Absolute Neuts (auto) Absolute Nucleated RBC Nucleated RBC % (auto) Neutrophils % (Manual) Band Neutrophils % Lymphocytes % (Manual) Atypical Lymphs % (Man) Monocytes % (Manual) Abs Neuts (Manual) Lymphocytes # (Manual) Atyp Lymphs # (Manual) Monocytes # (Manual) Toxic Vacuolation Platelet Estimate Large Platelets Plt Morphology Comment RBC Morphology Polychromasia Hypochromasia Microcytosis Target Cells [place] Bodies Acanthocytes (Spur) Rouleaux PT 14.0 H INR 1.2 H APTT 23.6 L Anion Gap Estim Creat Clear Calc Estimated GFR Random Glucose Lactic Acid 2.1 H* Lactic Acid F/U @ 2Hr Calcium Total Bilirubin Direct Bilirubin AST ALT Alkaline Phosphatase Troponin I High Sens Total Protein Albumin Influenza Type A (PCR) NEGATIVE Influenza Type B (PCR) NEGATIVE RSV RNA Qual (PCR) NEGATIVE SARS-CoV-2 RNA (RT-PCR) NEGATIVE 02/05/22 04:32 MCV MCH MCHC RDW Plt Count MPV Immature Gran % (Auto) Neut % (Auto) Lymph % (Auto) [place] % (Auto) Eos % (Auto) Baso % (Auto) Lymph # (Auto) [place] # (Auto) Eos # (Auto) Baso # (Auto) Abs Immat Gran (auto) Absolute Neuts (auto) Absolute Nucleated RBC Nucleated RBC % (auto) Neutrophils % (Manual) Band Neutrophils % Lymphocytes % (Manual) Atypical Lymphs % (Man) Monocytes % (Manual) Abs Neuts (Manual) Lymphocytes # (Manual) Atyp Lymphs # (Manual) Monocytes # (Manual) Toxic Vacuolation Platelet Estimate Large Platelets Plt Morphology Comment RBC Morphology Polychromasia Hypochromasia Microcytosis Target Cells [place] Bodies Acanthocytes (Spur) Rouleaux PT INR APTT Anion Gap Estim Creat Clear Calc Estimated GFR Random Glucose Lactic Acid Lactic Acid F/U @ 2Hr 1.7 Calcium Total Bilirubin Direct Bilirubin AST ALT Alkaline Phosphatase Troponin I High Sens Total Protein Albumin Influenza Type A (PCR) Influenza Type B (PCR) RSV RNA Qual (PCR) SARS-CoV-2 RNA (RT-PCR) Imaging Radiologist's Impressions: Impressions Chest X-Ray 02/04/22 23:55 IMPRESSION: Extensive, relatively nodular opacification throughout the lungs, most severe towards the lung bases. Differential considerations include metastatic disease or widespread infectious/inflammatory etiology. If no prior imaging is available, contrast-enhanced CT is advised for further evaluation. Abdomen/Pelvis CT 02/05/22 01:35 IMPRESSION: 1. Suboptimal assessment of the pulmonary arteries due to respiratory motion artifact and bolus timing. While no central pulmonary embolus is seen, the segmental and subsegmental vessels are not adequately evaluated, and therefore emboli at these levels cannot be excluded. 2. Innumerable pulmonary masses and nodules throughout both lungs, most suspicious for metastatic disease. 3. Retroperitoneal, pelvic sidewall, and inguinal lymphadenopathy, most suspicious for bismark metastases. Borderline enlarged subcarinal and AP window lymph nodes also noted in the chest. 4. Thickened appearance of the uterine endometrium towards the fundus, raising suspicion for endometrial malignancy given the additional findings in the chest and abdomen. Evaluation with pelvic ultrasound is recommended. 5. Intraluminal hypoattenuation in the bilateral common iliac veins and infrarenal IVC, concerning for intraluminal thrombus. Assessment with vascular ultrasound is recommended. 6. Small amount of free fluid in the abdomen. This critical result was discussed with Dr. Pollard on 02/05/2022 2:16 AM, and it was ascertained that the content and urgency of the report was understood at the time of direct communication. Chest CTA 02/05/22 01:35 IMPRESSION: 1. Suboptimal assessment of the pulmonary arteries due to respiratory motion artifact and bolus timing. While no central pulmonary embolus is seen, the segmental and subsegmental vessels are not adequately evaluated, and therefore emboli at these levels cannot be excluded. 2. Innumerable pulmonary masses and nodules throughout both lungs, most suspicious for metastatic disease. 3. Retroperitoneal, pelvic sidewall, and inguinal lymphadenopathy, most suspicious for bismark metastases. Borderline enlarged subcarinal and AP window lymph nodes also noted in the chest. 4. Thickened appearance of the uterine endometrium towards the fundus, raising suspicion for endometrial malignancy given the additional findings in the chest and abdomen. Evaluation with pelvic ultrasound is recommended. 5. Intraluminal hypoattenuation in the bilateral common iliac veins and infrarenal IVC, concerning for intraluminal thrombus. Assessment with vascular ultrasound is recommended. 6. Small amount of free fluid in the abdomen. This critical result was discussed with Dr. Pollard on 02/05/2022 2:16 AM, and it was ascertained that the content and urgency of the report was understood at the time of direct communication. Assessment and Plan (1) Metastatic cancer: Status: Acute (2) Acute respiratory failure with hypoxia: Status: Acute (3) Abnormal abdominal CT scan: Status: Acute (4) Vaginal bleeding: Status: Acute (5) IVC thrombosis: Status: Acute (6) Chest pain: Status: Acute Plan 56-year-old female with no significant past medical history presents to the hospital with complaints of chest pain, as well as found to be hypoxic with respiratory distress # chest pain - likely related to lung metastasis versus pneumonia less likely - troponin negative x1 - EKG shows no changes suggestive of ACS - p.r.n. pain control - although CT angiogram showed no definitive PE, he was a poor study for that, therefore will obtain nuclear medicine V/Q scan to rule out PE # acute hypoxic respiratory failure - the multifactorial in the setting of metastatic lung disease as well as likely bronchitis given cough, sputum production, denies any history of COPD or asthma - has leukocytosis, tachypneic, tachycardic, and given hypoxia pneumonia cannot be ruled out - no evidence of volume overload - at this time will treat with oxygen, IV antibiotics, - monitor respiratory status # metastatic cancer - likely source uterine - has vaginal bleed for the past 5 months, has evidence of uterine cancer as well as metastasis to lung - OB Gyne consulted - V/Q scan to rule out PE - will obtain transvaginal as well as pelvic ultrasound - follow CBC # vaginal bleed - likely secondary to above - hemoglobin stable -OB Gyne E consult, ultrasounds altered - follow CBC # abnormal abdominal CT of IVC - showing possible thrombus in the IVC and iliac veins in the abdominal pelvic CT - at this time will obtain ultrasound to rule out thrombus - given the vaginal bleed, will hold off on starting her on therapeutic anticoagulation until evaluated by Ob Gyne DVT prophylaxis heparin subQ- given her high risk for boluses in the setting of cancer. Given patient's acute hypoxic respiratory failure, and need for further evaluat ion of possible cancer [facility] further management and monitoring Quality Stroke Does the patient have a stroke diagnosis?: No VTE Prior VTE?: No VTE Risk Level:: Medical - moderate - high VTE Device Contraindication: Treatment Not Indicated VTE Drug Contraindication: N/A - Med Ordered
--- NOTE | 2022-02-05 06:08 | PC.NURSE ---
Patient ambulated 40 ft with supervision of this RN. Gait is slow, but steady.
[2022-02-05] MEDS: cefTRIAXone sodium 1 GM in 0.9 % Sodium Chloride 50 ML IV (06:30)
[2022-02-05] MEDS: Heparin Sodium,Porcine 5,000 UNIT/ML VIAL 5000 UNIT SUBCUT ×2 (06:30→18:21)
[2022-02-05] MEDS: Acetaminophen 325 MG TABLET 650 MG PO (06:44)
--- NOTE | 2022-02-05 07:28 | PC.NURSE ---
pt off unit to ultrasound
[2022-02-05] MEDS: Azithromycin 500 MG in 0.9 % Sodium Chloride 250 ML 125 MG IV (08:19)
[2022-02-05] MEDS: 0.9 % Sodium Chloride Flush 3 ML SYRINGE IVFLUSH ×3 (08:19→23:24)
--- NOTE | 2022-02-05 08:48 | PC.NURSE ---
pt off unit to pulmonary function test
--- NOTE | 2022-02-05 10:14 | PM.GYNCN ---
PHYSICIAN PRESIDENT - CN: HPI Data of Consult Consult date: 02/05/22 Requesting Physician: Jaswant Gudino MD Primary Care Provider: Unknown Physician Consult Narrative Narrative: I was consulted on Hina Finley who is a 56 year old female presented to the emergency room complaining of chest pain radiating to the abdomen and legs of 4 days duration associated with cough, increased sputum production, feverishness, chills and shortness of breath .? The patient gives a history of vaginal bleeding on and off for many years after going through a short period of amenorrhea. No recent Pap smear or mammogram. In the ED patient found to have a temperature of 99.1 degrees, respiratory rate of 20, heart rate of 116, blood pressure 157/104, respiratory rate currently in the 30s .? Patient reported to have become hypoxic dropping to the mid 70s on room air. Labs are significant for WBC count of 16.3, INR of 1.2, lactic acid of 2.1 improved after IV fluids Imaging including CT angiogram of the chest as well as abdomen pelvic CT shows poor study for PE but patient has innumerable pulmonary masses and nodules throughout both lungs most suspicious for metastatic disease, she also has retroperitoneal, pelvic sidewall, and we lymphadenopathy most suspicious for bismark metastasis.? Thickened appearance of the uterine endometrium towards the fundus raising suspicion for endometrial malignancy, patient also has intraluminal air hypoattenuation in the bilateral common iliac veins and in for all renal IVC concerning for intraluminal thrombus. V/Q scan was low probability for PE Pelvic ultrasound showed: Uterus: Anteverted/anteflexed measuring 13.8 x 8.0 x 8.5 cm. The endometrium is heterogeneous and hypoechoic measuring up to 3.0 cm at the level the fundus (image 14, series 1). Doppler showed no abnormal vascular flow. The cervix is closed without abnormality. Minimal free fluid in the pelvic cul-de-sac. Right ovary measures 3.0 x 2.3 x 2.5 cm. Volume 9 mL. Mild free fluid in the right adnexa. Left ovary measures 4.0 x 3.2 x 3.1 cm. Volume 20.1 mL. Urinary bladder: Minimally distended without focal abnormality. cc:: CC: Jaswant Gudino MD RN SOCIAL WORK - Review of Systems Review of Systems ROS Unobtainable: All systems reviewed & are unremarkable except as noted in HPI and below Cardiovascular: Denies Palpatations, Loss of consciousness or Chest pain Respiratory: Denies Cough, Wheezing or Shortness of breath Musculoskeletal: Denies Low back pain Gastrointestinal: Denies Heartburn, Constipation, Diarrhea, Nausea or Vomiting Genitourinary: Denies Pain with urination, Burning with urination or Urinary frequency Neurological: Denies Migranes Psychological: Denies Depression [facility] Past Medical History Medical History (Updated 02/05/22 @ 10:49 by Obey Mancilla MD) High cholesterol Family History Family History (Updated 02/05/22 @ 06:11 by Boo Alejandro MD) Other No family history of cancer Surgical History Surgical History (Updated 02/05/22 @ 06:13 by Boo Alejandro MD) No pertinent past surgical history Social History Social History (Updated 02/05/22 @ 06:13 by Boo Alejandro MD) Household Members: Family Housing: House Do you presently have visiting nurse or other home services: No Alcohol intake: never Patient Tobacco Use Status: Never used Tobacco service: No Current occupational status: unemployed Current occupation: rt hand Meds Allergies Allergy/AdvReac Type Severity Reaction Status Date / Time No Known Allergies Allergy Verified 02/04/22 22:30 Active Medications: Current Medications Acetaminophen (Acetaminophen 325 Mg Tablet) 650 mg PO Q6H PRN PRN Reason: Pain, Mild (Pain Scale 1-3) Last Admin: 02/05/22 06:44 Dose: 650 mg Docusate Sodium (Docusate Sodium 100 Mg Capsule) 100 mg PO DAILY PRN PRN Reason: Constipation Heparin Sodium (Porcine) (Heparin Sodium,Porcine 5,000 Unit/Ml Vial) 5,000 unit SUBCUT Q12H [facility] Last Admin: 02/05/22 06:30 Dose: 5,000 unit Ceftriaxone Sodium 1 gm/ (Sodium Chloride) 50 mls @ 100 mls/hr IV Q24H [facility] Last Infusion: 02/05/22 08:13 Dose: Infused Azithromycin 500 mg/ Sodium (Chloride) 250 mls @ 125 mls/hr IV Q24H [facility] Last Admin: 02/05/22 08:19 Dose: 125 mls/hr Morphine Sulfate (Morphine Sulfate 4 Mg/Ml Cartridge) 4 mg IVPUSH Q4H PRN; Protocol PRN Reason: Pain, Severe (Pain Scale 7-10) Ondansetron HCl (Ondansetron Hcl 4 Mg/2 Ml Vial) 4 mg IVPUSH Q8H PRN PRN Reason: Nausea and Vomiting Sodium Chloride (0.9 % Sodium Chloride Flush 3 Ml Syringe) 3 ml IVFLUSH QSHIFT [facility] Last Admin: 02/05/22 08:19 Dose: 3 ml Home Medications Medication Instructions Recorded Confirmed Last Taken Type ibuprofen 200 mg tablet 200 mg PO Q6H PRN Pain 02/05/22 02/05/22 Unknown History PHYSICIAN PRESIDENT Physical Exam Vitals Vital signs: Temp Pulse Resp BP Pulse Ox O2 Del Method O2 Flow Rate 100.3 F 109 H 32 H 145/81 H 96 2 02/05/22 06:39 02/05/22 07:22 02/05/22 07:22 02/05/22 07:22 02/05/22 07:22 02/05/22 07:22 02/05/22 07:22 BMI result Body Mass Index 50.9 Constitutional General Appearance: Healthy appearing, Well-nourished and Well-developed Psychiatric Mood and Affect: active and alert, normal mood and normal affect Skin Appearance: No rashes and No lesions Lungs Auscultation: Other (Diminished breath sounds, tachypneic) Cardiovascular Auscultation: RRR Abdomen Auscultation/Inspection/Palpation: Normal bowel sounds, Soft, Non-distended and No tenderness Female Genitalia (Pelvic) Bladder/Urethra: Normal meatus Vulva: No lesions Vagina: Nontender Cervix: Friable and Lesion (Cervical masses friable, fixed to the pelvic sidewall) Uterus: Enlarged and Fixed Adnexa/Parametria: Adnexal Tenderness: None, Adnexal Mass: None and Parametrial Mass: Bilateral (Fixed to the bilateral /parametrial pelvic sidewall) Breast Breast: No skin changes, Nipple appearance normal, No tenderness and No distinct masses Additional Comments: Blood per vagina PHYSICIAN PRESIDENT - Results Labs CBC & Chem 7: 02/05/22 11:17 02/05/22 11:17 Labs: Short CBC 02/04/22 Range/Units 23:45 WBC 16.3 H (4.8-10.8) X10*3/uL Hgb 11.0 L (12.0-16.0) g/dl Hct 33.7 L (37.0-47.0) % Plt Count 431 H (160-400) X10*3/uL BMP 02/04/22 23:45 Sodium 137 Potassium 4.8 Chloride 99 Carbon Dioxide 22 BUN 16 Creatinine 0.74 Calcium 9.4 Liver Function 02/04/22 Range/Units 23:45 Total Bilirubin 0.6 (0.0-1.0) mg/dL Direct Bilirubin 0.2 (0.0-0.5) mg/dL AST 16 (5-31) U/L ALT 21 (0-31) U/L Alkaline Phosphatase 66 (39-117) U/L Albumin 3.6 (3.5-5.0) g/dL Imaging CT scan - chest: Radiologist's impression: ITS Impressions Chest X-Ray 02/04/22 23:55 IMPRESSION: Extensive, relatively nodular opacification throughout the lungs, most severe towards the lung bases. Differential considerations include metastatic disease or widespread infectious/inflammatory etiology. If no prior imaging is available, contrast-enhanced CT is advised for further evaluation. Abdomen/Pelvis CT 02/05/22 01:35 IMPRESSION: 1. Suboptimal assessment of the pulmonary arteries due to respiratory motion artifact and bolus timing. While no central pulmonary embolus is seen, the segmental and subsegmental vessels are not adequately evaluated, and therefore emboli at these levels cannot be excluded. 2. Innumerable pulmonary masses and nodules throughout both lungs, most suspicious for metastatic disease. 3. Retroperitoneal, pelvic sidewall, and inguinal lymphadenopathy, most suspicious for bismark metastases. Borderline enlarged subcarinal and AP window lymph nodes also noted in the chest. 4. Thickened appearance of the uterine endometrium towards the fundus, raising suspicion for endometrial malignancy given the additional findings in the chest and abdomen. Evaluation with pelvic ultrasound is recommended. 5. Intraluminal hypoattenuation in the bilateral common iliac veins and infrarenal IVC, concerning for intraluminal thrombus. Assessment with vascular ultrasound is recommended. 6. Small amount of free fluid in the abdomen. This critical result was discussed with Dr. Pollard on 02/05/2022 2:16 AM, and it was ascertained that the content and urgency of the report was understood at the time of direct communication. Chest CTA 02/05/22 01:35 IMPRESSION: 1. Suboptimal assessment of the pulmonary arteries due to respiratory motion artifact and bolus timing. While no central pulmonary embolus is seen, the segmental and subsegmental vessels are not adequately evaluated, and therefore emboli at these levels cannot be excluded. 2. Innumerable pulmonary masses and nodules throughout both lungs, most suspicious for metastatic disease. 3. Retroperitoneal, pelvic sidewall, and inguinal lymphadenopathy, most suspicious for bismark metastases. Borderline enlarged subcarinal and AP window lymph nodes also noted in the chest. 4. Thickened appearance of the uterine endometrium towards the fundus, raising suspicion for endometrial malignancy given the additional findings in the chest and abdomen. Evaluation with pelvic ultrasound is recommended. 5. Intraluminal hypoattenuation in the bilateral common iliac veins and infrarenal IVC, concerning for intraluminal thrombus. Assessment with vascular ultrasound is recommended. 6. Small amount of free fluid in the abdomen. This critical result was discussed with Dr. Pollard on 02/05/2022 2:16 AM, and it was ascertained that the content and urgency of the report was understood at the time of direct communication. Abdomen Ultrasound 02/05/22 07:32 FINDINGS/IMPRESSION: The proximal inferior vena cava appears patent with venous waveforms. The infrarenal segment appears to have been the region of concern on the previous CT scan, but was suboptimally evaluated. If clinically indicated this could be monitored for change with contrast-enhanced CT scan of the abdomen and pelvis with delayed imaging as indicated. Pelvic/Transvag US 02/05/22 07:53 IMPRESSION: 1. Irregular endometrium. No definitive enhancing mass. Sonohysterography and biopsy should be considered. 2. Mild free fluid in the cul-de-sac and right adnexa could be physiologic or secondary to known trace ascites. Pulmonary Perfusion Imaging 02/05/22 09:00 IMPRESSION: Low probability of pulmonary embolism. Heterogeneity diffusely in both lungs is most consistent with diffuse metastatic disease visible on contemporaneous CT scans. Assessment and Plan (1) Postmenopausal bleeding: Status: Acute Thickened endometrium by ultrasound Cervical friable mass fixed to bilateral sidewalls Pulmonary metastatic lesions Pelvic lymphadenopathy IVC thrombosis Acute respiratory failure with hypoxia Plan Discussed with the patient the differential diagnosis of her clinical situation, post menopausal bleeding with the abnormal findings on pelvic exam showing cervical friable mass fixed to the pelvic sidewalls, with enlarged uterus, thickened endometrium by ultrasound. It includes but not limited to: cervical/endocervical malignancy with uterine, local pelvic and distant metastasis or endometrial malignancy with cervical involvement, pelvic and distant pulmonary metastasis, in addition to other possible causes; co testing done, endometrial biopsy attempted but could not be completed because of a cervical mass obstructing the endocervical canal. Cervical biopsy at 12:00 o'clock taken, in addition to endocervical curettage; tissues were sent to pathology. Will check the pathology and determine a plan of management. The Communication with the patient was through hospital certified inspector [employer]. This note was generated with a voice recognition program. Some errors may have been overlooked during the review of this note. Sometimes these errors may affect the content or meaning of a given sentence. PHYSICIAN PRESIDENT Biopsy The patient was counseled regarding the indication and benefits of cervical biopsies, ECC and endometrial sampling to rule out cervical, endocervical and endometrial pathology including not limited to cervical/endocervical malignancy endometrial hyperplasia or endometrial cancer and others; The alternatives (Either do nothing vs. hysteroscopy D&C, ECC and cervical biopsy) & the risks were discussed with the patient including but not limited: pain, uterine perforation, bleeding, infection, possible injury to bladder, bowel, ureter, possible need for blood transfusion with all its possible risks. The patient verbalized understanding all questions answered and signed consent. The patient was placed into the dorsal lithotomy position; a speculum was inserted in the vagina. Using aseptic technique for the procedure, the cervix was cleansed with Betadine. Pap smear taken Inspection revealed cervical friable mass fixed to parametrium and pelvic sidewalls bilaterally Cervical biopsy taken from 12 o?clock, ECC done afterwards. The anterior lip of the cervix was grasped with a single tooth tenaculum. Attempted to sounded to 7 cm with a 4 mm Pipelle could not pass through the ectocervix, possibly of secondary to endocervical mass, after multiple attempts endometrial biopsy was aborted Tissues samples obtained from the cervix and endocervix were placed in formalin, in a patient labeled container and sent to the pathology department. Monsel solution was used for hemostasis. At the end of the procedure, there was minimal bleeding noted The patient tolerated the procedure well [id number]-[id number] of Cervix Procedure code (CPT) selection complete
--- NOTE | 2022-02-05 10:39 | PHA.MEDREC ---
Pharmacy Consult ? Medication Reconciliation Pharmacy has completed the medication reconciliation.
[2022-02-05 11:20] LABS: Appearance Urine Turbid; Color Urine Dark Yellow; Glucose Urine UA Negative (Negative); Leukocyte Esterase Urine Small (1+) (Negative); Nitrite Urine Negative (Negative); Specific Gravity - Urine >= 1.030 (1.005-1.025); UMIC TRIGGER UA YES; Urine Blood Large (3+) (Negative); Urine Ketones Negative (Negative); Urine Protein 100 (2+) mg/dL (Neg-Trace)
[2022-02-05 11:26] LABS: Hematocrit 32.9 % (37.0-47.0); Hemoglobin 10.6 g/dl (12.0-16.0); Mean Corpuscular HGB Conc 32.2 g/dl (31.0-35.0); Mean Corpuscular Hemoglobin 24.5 pg (27.0-33.0); Mean Platelet Volume 10.5 fL (9.4-12.3); Platelet Count 412 X10*3/uL (160-400); Red Blood Count 4.33 X10*6/uL (4.20-5.50); Red Cell Distribution Width 16.3 % (11.0-16.0)
[2022-02-05 11:27] LABS: WBC ABN SCTR FOR CBC 1
[2022-02-05 11:42] LABS: Anion Gap 19 (12-20); Blood Urea Nitrogen 14 mg/dL (9-16); Calcium 9.2 mg/dL (8.4-10.2); Carbon Dioxide 23 mmol/L (22-29); Chloride 99 mmol/L (96-108); Creatinine Clr Calc Pharmacy 116.7; Estimated Glomerular Filt Rate > 60; Glucose Random 121 mg/dL (60-115); Potassium 4.3 mmol/L (3.3-5.1); Sodium 137 mmol/L (135-145)
[2022-02-05 12:02] LABS: Lactic Acid 2.7 mmol/L (0.5-2.0)
[2022-02-05 12:04] LABS: Band Neutrophils Percent 2 % (3-5); Lymphocytes Percent Manual 10 % (20-40); Monocytes Percent Manual 5 % (2-11); Neutrophils Percent Manual 83 % (45-73)
[2022-02-05 12:05] LABS: Microcytosis 1+ (5-14) /OIF; RBC Morphology NOTED
[2022-02-05 12:06] LABS: Acanthocytes 2+ (3-5) /OIF; Platelet Estimate SLIGHTLY INCREASED (NORMAL); Platelet Morphology Comment NORMAL
[2022-02-05 12:06] LABS: Bacteria Urine None Seen (None Seen); Hyaline Casts Urine 0-2 /LPF (0-2)
[2022-02-05 12:07] LABS: Granular Casts Urine Present; Other Crystals Urine Present
[2022-02-05 12:07] LABS: Hypochromasia 1+ (5-14) /OIF; Target Cells 1+ (5-14) /OIF
--- NOTE | 2022-02-05 12:30 | PC.NURSE ---
dr gudino made aware of pt Lactic acid 2.7 - per dr Gudino, no longer need to draw Lactic.
[2022-02-05 12:43] LABS: Lymphocytes Absolute Manual 1.6 X10*3/uL (1.2-4.9); Monocytes Absolute Manual 0.8 X10*3/uL (0.1-1.2); Neutrophils Absolute Manual 13.6 X10*3/uL (2.0-8.3)
--- NOTE | 2022-02-05 13:20 | MHC.CM.PN ---
Meet with patient and son @ bedside. Patient is from home lives with Joseph. Typically independent within the home but more recently has become weaker ambulating in the home. Not Vax'd. No services in the home prior to discharge. Reports having completed a HCP form, does not have copy. CM will try to locate. Patient and son open to VNA or STR as appropriate. If home, son can transport home.
[2022-02-05 13:22] LABS: Reflex Lactate? Lactic Acid Added
[2022-02-05] MEDS: guaiFENesin 100 MG/5 ML LIQUID PO ×2 (17:37→23:26)
[2022-02-06 03:09] VITALS: BP 124/84; PULSE 108; RESP 26; TEMP 37.9; O2SAT 91
[2022-02-06] MEDS: Acetaminophen 325 MG TABLET 650 MG PO (03:19)
[2022-02-06 04:00] VITALS: TEMP 36.4
[2022-02-06] MEDS: Heparin Sodium,Porcine 5,000 UNIT/ML VIAL 5000 UNIT SUBCUT ×2 (06:16→18:35)
[2022-02-06] MEDS: Azithromycin 500 MG in 0.9 % Sodium Chloride 250 ML 125 MG IV (06:17)
[2022-02-06] MEDS: cefTRIAXone sodium 1 GM in 0.9 % Sodium Chloride 50 ML IV (06:17)
[2022-02-06 08:08] VITALS: BP 139/74; PULSE 103; RESP 18; TEMP 36.8; O2SAT 93
[2022-02-06 09:24] LABS: Hematocrit 33.2 % (37.0-47.0); Hemoglobin 10.7 g/dl (12.0-16.0); Mean Corpuscular HGB Conc 32.2 g/dl (31.0-35.0); Mean Corpuscular Hemoglobin 24.2 pg (27.0-33.0); Mean Corpuscular Volume 75.1 fL (80.0-98.0); Mean Platelet Volume 11.3 fL (9.4-12.3); PLT CLUMP 1; Red Blood Count 4.42 X10*6/uL (4.20-5.50); Red Cell Distribution Width 16.1 % (11.0-16.0)
[2022-02-06 09:25] LABS: Platelet Count 406 X10*3/uL (160-400); WBC ABN SCTR FOR CBC 1; White Blood Count 14.8 X10*3/uL (4.8-10.8)
[2022-02-06] MEDS: guaiFENesin 100 MG/5 ML LIQUID PO ×2 (10:14→16:36)
[2022-02-06 15:05] VITALS: BP 142/92; PULSE 105; RESP 19; TEMP 36.9; O2SAT 94
--- NOTE | 2022-02-06 15:16 | P.DS_ITS ---
DS: Providers Provider Date of Service: 02/09/22 Date of admission: 02/05/22 05:59 Primary care physician: Unknown Physician Consults: 02/05/22 05:51 Consult to Obstetrics / Gynecology Routine Consulting Provider: Obey Mancilla Reason for consultation: vaginal bleed, likely uterine malignancy Has provider been notified: No DS: Diagnosis Discharge Diagnosis (1) Postmenopausal bleeding: Status: Acute DS: Summary Hospital Course Hospital Course: From the history and physical by the admitting hospitalist, Boo Alejandro MD, 02/05/22: this is a 56-year-old female who denies any past medical history presents to the hospital with complaints of chest pain radiating to the abdomen and legs. Patient reports that her symptoms started 3-4 days ago. She has also had upper respiratory symptoms including cough, increased sputum production. She is also complaining of feeling febrile having shortness of breath and chills. On further review of system patient is reporting vaginal bleed for the past 5 months. Intermittent. Patient is postmenopausal. She describes an chest pain as air stuck in the chest. She denies any recent weight loss. Patient reports lower abdominal pain that has been going on for the past 5 months as well. Denies any nausea vomiting, has constipation, denies any urinary symptoms, no lower extremity edema p.r.n. On arrival to the ED patient found to have a temperature of 99.1 degrees, respiratory rate of 20, heart rate of 116, blood pressure 157/104, respiratory rate currently in the 30s . Patient reported to have become hypoxic dropping to the mid 70s on room air. Labs are significant for WBC count of 16.3, INR of 1.2, lactic acid of 2.1 improved after IV fluids Imaging including CT angiogram of the chest as well as abdomen pelvic CT shows poor study for PE but patient has innumerable pulmonary masses and nodules throughout both lungs most suspicious for metastatic disease, she also has retroperitoneal, pelvic sidewall, and we lymphadenopathy most suspicious for bismark metastasis. Thickened appearance of the uterine endometrium towards the fundus raising suspicion for endometrial malignancy, patient also has intraluminal air hypoattenuation in the bilateral common iliac veins and in for all renal IVC concerning for intraluminal thrombus This 56yo F presenting with chest pain + postmenopausal bleeding was admitted for hypoxia and was found to have pulmonary nodules suspicious for metastatic disease from endocervical lesion. Chest pain resolved and there was no evidence of ACS or PE. She could not be weaned from oxygen and was sent home on 3L of oxygen at all times. She was treated with empiric antibiotics for possible pneumonia, but the hypoxia is most likely due to the pulmonary metastases. Gynecology was consulted and she was found to have a cervical mass obstructing the endocervical canal. Cervical biopsy and endocervical curettage was done. Pathology is pending at the time of discharge. 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 Follow-up with Dr Obey Mancilla from [facility] and Dr Roseanna Sim from [facility] Oncology was arranged and the patient will also need to establish primary care as soon as possible. Time Spent with Patient Time attestation: Total time spent providing and/or coordinating discharge services: Discharge coordination time: Greater than 30 minutes Quality: Safe Use of Opioids Does Pt have an Active Cancer Diagnosis on the Problem List?: Yes Opioid Measure Date for [facility] Report: 02/09/22 Opioid Measure Time for [facility] Report: 07:41 Quality: Stroke Does the patient have a stroke diagnosis?: No Physical Exam Vital Signs: Vital Signs: Last Vital Signs Temp 98.4 F 02/06/22 15:05 Pulse 105 H 02/06/22 15:05 Resp 19 02/06/22 15:05 BP 142/92 H 02/06/22 15:05 Pulse Ox 94 02/06/22 15:05 O2 Del Method 02/06/22 15:05 O2 Flow Rate 2.0 02/06/22 15:05 BMI result Body Mass Index 52.4 DS: Data Data Completed and Pending Pending studies at discharge: Pending at discharge 02/05/22 10:15 Surgical [PTH] Routine 02/05/22 10:17 Cytology [PTH] Routine Labs on day of discharge: Laboratory Results - last 24 hr 02/06/22 08:42 WBC 14.8 H RBC 4.42 Hgb 10.7 L Hct 33.2 L MCV 75.1 L MCH 24.2 L MCHC 32.2 RDW 16.1 H Plt Count 406 H MPV 11.3 Absolute Nucleated RBC 0.000 Nucleated RBC % (auto) 0.0 Preliminary micro results at discharge 02/05/22 00:41 Blood Culture - Preliminary Blood - Venous No growth after 24 hours. 02/05/22 00:41 Blood Culture - Preliminary Blood - Venous No growth after 24 hours. 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] hypoxic respiratory failure Referrals: [facility] [Provider Group] - 1 Week Roseanna Sim MD [Physician] - 1 Week (FEBRUARY 16, [address] SIM @ 1140 A.M.) Obey Mancilla MD [Physician] - 1 Week Discharge Medications: New cefuroxime axetil 500 mg tablet 500 mg PO BID Qty: 8 0RF Eliquis DVT-PE Treat 30D Start 5 mg (74 tabs) tablets,dose pack See Rx Instructions .ROUTE .COMPLEX Qty: 74 0RF Rx Instructions: 2 tabs PO bid x 7 days, then 1 tab PO bid Discontinued ibuprofen 200 mg Tablet 200 mg PO Q6H PRN (Reason: Pain) Discharge Orders: Discharge Order (Routine); Ordered 02/09/22 Ordered By: Gabriela Gaytan Diet: Advance to usual diet Activity on Discharge: As tolerated Stand Alone Forms: Patient Portal Discharge page Care Plan Goals: diagnosis and treatment of 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 treatment of IVC thrombus [deep vein thrombosis] treatment of hypoxia Health Concerns: 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 Discharge Date/Time: 02/09/22 16:20
--- NOTE | 2022-02-06 17:48 | P.PNIM_ITS ---
Subjective Subjective Date of Service: 02/06/22 Interval History: Seen in f/u for chest pain, vaginal bleeding interval history: no more chest pain, no sob , Review of Systems no chest pain, no sob interval history Physical Exam Vital Signs: Vital Signs: Last Vital Signs Temp 98.4 F 02/06/22 15:05 Pulse 105 H 02/06/22 15:05 Resp 19 02/06/22 15:05 BP 142/92 H 02/06/22 15:05 Pulse Ox 94 02/06/22 15:05 O2 Del Method 02/06/22 15:05 O2 Flow Rate 2.0 02/06/22 15:05 BMI result Body Mass Index 52.4 Const: Other: General: AO X 3, no acute distress, morobid obesity Resp: CTA bilateral CVS: S1,S2,RRR GI: +BS, NT, no distention Skin: No rash Neuro: motor grossly intact Psych: appropriate affect Objective Data Active Medications Acetaminophen (Acetaminophen 325 Mg Tablet) 650 mg PO Q6H PRN PRN Reason: Pain, Mild (Pain Scale 1-3) Last Admin: 02/06/22 03:19 Dose: 650 mg Documented By: JUAN PABLO Docusate Sodium (Docusate Sodium 100 Mg Capsule) 100 mg PO DAILY PRN PRN Reason: Constipation Guaifenesin (Guaifenesin 100 Mg/5 Ml Liquid) 5 ml PO Q6H PRN PRN Reason: Cough Last Admin: 02/06/22 16:36 Dose: 5 ml Documented By: SIMON Heparin Sodium (Porcine) (Heparin Sodium,Porcine 5,000 Unit/Ml Vial) 5,000 unit SUBCUT Q12H [facility] Last Admin: 02/06/22 06:16 Dose: 5,000 unit Documented By: JUAN PABLO Ceftriaxone Sodium 1 gm/ (Sodium Chloride) 50 mls @ 100 mls/hr IV Q24H [facility] Last Infusion: 02/06/22 06:52 Dose: 0 mls/hr Documented By: JUAN PABLO Azithromycin 500 mg/ Sodium (Chloride) 250 mls @ 125 mls/hr IV Q24H [facility] Last Infusion: 02/06/22 14:24 Dose: 125 mls/hr Documented By: SIMON Morphine Sulfate (Morphine Sulfate 4 Mg/Ml Cartridge) 4 mg IVPUSH Q4H PRN; Protocol PRN Reason: Pain, Severe (Pain Scale 7-10) Ondansetron HCl (Ondansetron Hcl 4 Mg/2 Ml Vial) 4 mg IVPUSH Q8H PRN PRN Reason: Nausea and Vomiting Sodium Chloride (0.9 % Sodium Chloride Flush 3 Ml Syringe) 3 ml IVFLUSH QSHIFT [facility] Last Admin: 02/06/22 17:18 Dose: Not Given Documented By: SIMON Non-Admin Reason: given with prior medication Labs 02/08/22 06:01 02/08/22 06:01 Labs: Laboratory Results - last 24 hr 02/06/22 08:42 MCV 75.1 L MCH 24.2 L MCHC 32.2 RDW 16.1 H Plt Count 406 H MPV 11.3 Absolute Nucleated RBC 0.000 Nucleated RBC % (auto) 0.0 Microbiology Microbiology Results: Microbiology 02/05/22 00:41 Blood Culture - Preliminary Blood - Venous No growth after 24 hours. 02/05/22 00:41 Blood Culture - Preliminary Blood - Venous No growth after 24 hours. Assessment and Plan (1) Adenocarcinoma: Status: Acute (2) Morbid obesity: Status: Acute Plan 56-year-old female with no significant past medical history presents to the hospital with complaints of chest pain, as well as found to be hypoxic with respiratory distress # chest pain--etiology unclear but resolved. No ACS, no PE, there are multiple pulmonary nodules concerning for met # acute hypoxic respiratory failure - the multifactorial in the setting of metastatic lung disease as well as likely bronchitis given cough, sputum production, denies any history of COPD or asthma - has leukocytosis, tachypneic, tachycardic, and given hypoxia pneumonia cannot be ruled out - no evidence of volume overload - On empiric Abx # ? metastatic cancer - likely source uterine - has vaginal bleed for the past 5 months, has evidence of uterine cancer as well as metastasis to lung - OB Gyne consulted - V/Q scan to rule out PE -Onc consult re how to proceed with work up # vaginal bleed - likely secondary to above - hemoglobin stable -SKY DIVER seen and did Biopsy and will need outpatient followup with Dr. Mancilla # abnormal abdominal CT of IVC - showing possible thrombus in the IVC and iliac veins in the abdominal pelvic CT, Ultrasounds then showed -The proximal inferior vena cava appears patent with venous waveforms. The infrarenal segment appears to have been the region of concern on the previous CT scan, but was suboptimally evaluated. If clinically indicated this could be monitored for change with contrast-enhanced CT scan of the abdomen and pelvis with delayed imaging as indicated. ? - given the vaginal bleed, will hold off on starting her on therapeutic anticoagulation until evaluated by Ob Gyne DVT prophylaxis heparin subQ- Given patient's acute hypoxic respiratory failure, and need for further evaluation of possible cancer patient required minimum tonight inpatient hospital stay for further management and monitoring Quality Stroke Does the patient have a stroke diagnosis?: No VTE Prior VTE?: No VTE Risk Level:: Medical - moderate - high VTE Device Contraindication: Treatment Not Indicated VTE Drug Contraindication: N/A - Med Ordered
[2022-02-06 19:37] VITALS: BP 129/80; PULSE 110; RESP 19; TEMP 37.2; O2SAT 92
[2022-02-06] MEDS: 0.9 % Sodium Chloride Flush 3 ML SYRINGE IVFLUSH (23:32)
[2022-02-07 03:56] VITALS: BP 136/84; PULSE 103; RESP 20; TEMP 36.9; O2SAT 95
[2022-02-07] MEDS: cefTRIAXone sodium 1 GM in 0.9 % Sodium Chloride 50 ML IV (06:21)
[2022-02-07] MEDS: Heparin Sodium,Porcine 5,000 UNIT/ML VIAL 5000 UNIT SUBCUT ×2 (06:21→18:17)
[2022-02-07] MEDS: Azithromycin 500 MG in 0.9 % Sodium Chloride 250 ML 125 MG IV (06:53)
[2022-02-07 08:00] VITALS: BP 125/77; PULSE 102; RESP 22; TEMP 36.9; O2SAT 93
--- NOTE | 2022-02-07 13:47 | P.CNHO_ITS ---
Subjective - Subjective Chief complaint: Consult for: Uterine carcinoma, pulmonary metastases. Patient: new to practice Consult date: 02/07/22 Requesting Physician: Terese, Primary Care Provider: Unknown Physician Medical Summary: DIAGNOSIS: UTERINE MASS. PULMONARY NODULES. HPI - Consult Narrative Reason for consult: Consult for: Uterine mass & Pulmonary metastases. Narrative: Hina Finley is a pleasant 56 year old lady, who presented to the hospital with complaints of chest pain radiating to the abdomen and legs. She describes an chest pain as air stuck in the chest. Her symptoms started 4-5 days ago. She has had upper respiratory symptoms including cough, increased sputum pro duction. She is also complaining of feeling febrile having shortness of breath and chills. Patient also reported intermittant vaginal bleed for the past 5 months. Patient reports lower abdominal pain that has been going on for the past 5 months as well. She is postmenopausal. She denies any nausea vomiting,nor weight loss. She has constipation, denies any urinary symptoms, no lower extremity edema. She was found to have a temperature of 99.1 degrees, respiratory rate of 20, heart rate of 116, blood pressure 157/104, respiratory rate currently in the 30s . Patient reported to have become hypoxic dropping to the mid 70s on room air. Labs are significant for WBC count of 16.3, INR of 1.2, lactic acid of 2.1 improved after IV fluids Imaging including CT angiogram of the chest as well as abdomen pelvic CT shows poor study for PE. She has innumerable pulmonary masses and nodules throughout both lungs most suspicious for metastatic disease, she also has retroperitoneal, pelvic sidewa ll, and we lymphadenopathy most suspicious for bismark metastasis. Thickened appearance of the uterine endometrium towards the fundus raising suspicion for endometrial malignancy, patient also has intraluminal air hypoattenuation in the bilateral common iliac veins and in for all renal IVC concerning for intraluminal thrombus. Review of Systems Review of Systems: She is feeling better now. She presented with chest pain and abdominal pain. She had back pain on the right side. She had vaginal bleeding. No clots but fresh blood in which was quite a bit. She had some cold symptoms. Denies headache no dizziness. She has a good appetite however does admit to weight loss. All other systems are reviewed and are negative PMFSH Medical History: High cholesterol Family History: family history of throat cancer in cousin. Surgical History: No pertinent past surgical history Social History: She worked in a factory. She is . She has 3 children. Denies smoking. Alcohol intake: never Patient Tobacco Use Status: Never used Tobacco Smoked in Last 30 Days: No Use of substances other than those prescribed or required for medical reasons: No Advance Directives: No Advance Directives Information Provided: Yes Current occupational status: unemployed Review of Systems - Constitutional Reports system reviewed and no additional complaints, except as documented, Reports weakness - Eyes Reports system reviewed and no additional complaints, except as documented - ENT Reports system reviewed and no additional complaints, except as documented - Cardiovascular Reports system reviewed and no additional complaints, except as documented - Respiratory Reports no additional respiratory complaints - Gastrointestinal Reports system reviewed and no additional complaints, except as documented - Genitourinary Reports no additional female genitourinary complaints - Musculoskeletal Reports system reviewed and no additional complaints, except as documented - Integumentary/Breasts Skin/Breast: Reports no additional skin complaints - Neurologic Reports system reviewed and no additional complaints, except as documented - Psychiatric Reports system reviewed and no additional complaints, except as documented - Endocrine Reports no additional endocrine complaints - Hematologic/Lymphatic Reports system reviewed and no additional complaints, except as documented - Allergic/Immunologic Reports system reviewed and no additional complaints, except as documented Oncology Screenings - ECOG Performance Status ECOG Performance Status: 1 [facility] Medical History: Medical History (Last Reviewed 02/05/22 @ 06:11 by Boo Alejandro MD) High cholesterol Functional capacity: wheelchair bound Patient : No Family History: Family History (Last Updated 02/05/22 @ 06:11 by Boo Alejandro MD) Other No family history of cancer Surgical History: Surgical History (Last Updated 02/05/22 @ 06:13 by Boo Alejandro MD) No pertinent past surgical history Social History: Social History (Last Updated 02/05/22 @ 06:13 by Boo Alejandro MD) Living Situation History: Household Members: Family Housing: House Do you presently have visiting nurse or other home services: No Tobacco History: Patient Tobacco Use Status: Never used Tobacco Occupation Assessmet: service: No Current occupational status: unemployed 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 Medications and Allergies Current Medications: Current Medications Acetaminophen (Acetaminophen 325 Mg Tablet) 650 mg PO Q6H PRN PRN Reason: Pain, Mild (Pain Scale 1-3) Last Admin: 02/06/22 03:19 Dose: 650 mg Docusate Sodium (Docusate Sodium 100 Mg Capsule) 100 mg PO DAILY PRN PRN Reason: Constipation Guaifenesin (Guaifenesin 100 Mg/5 Ml Liquid) 5 ml PO Q6H PRN PRN Reason: Cough Last Admin: 02/06/22 16:36 Dose: 5 ml Heparin Sodium (Porcine) (Heparin Sodium,Porcine 5,000 Unit/Ml Vial) 5,000 unit SUBCUT Q12H [facility] Last Admin: 02/07/22 06:21 Dose: 5,000 unit Ceftriaxone Sodium 1 gm/ (Sodium Chloride) 50 mls @ 100 mls/hr IV Q24H [facility] Last Infusion: 02/07/22 06:55 Dose: Infused Azithromycin 500 mg/ Sodium (Chloride) 250 mls @ 125 mls/hr IV Q24H [facility] Last Infusion: 02/07/22 09:51 Dose: Infused Morphine Sulfate (Morphine Sulfate 4 Mg/Ml Cartridge) 4 mg IVPUSH Q4H PRN; Protocol PRN Reason: Pain, Severe (Pain Scale 7-10) Ondansetron HCl (Ondansetron Hcl 4 Mg/2 Ml Vial) 4 mg IVPUSH Q8H PRN PRN Reason: Nausea and Vomiting Sodium Chloride (0.9 % Sodium Chloride Flush 3 Ml Syringe) 3 ml IVFLUSH QSHIFT [facility] Last Admin: 02/07/22 08:24 Dose: Not Given Allergies Allergy/AdvReac Type Severity Reaction Status Date / Time No Known Allergies Allergy Verified 02/04/22 22:30 Physical Exam Vital signs: Vital Signs Temp 98.4 F 02/07/22 08:00 Pulse 102 H 02/07/22 08:00 Resp 22 H 02/07/22 08:00 BP 125/77 02/07/22 08:00 Pulse Ox 93 02/07/22 08:00 O2 Del Method 02/07/22 08:00 O2 Flow Rate 2 02/07/22 08:00 Intake & Output 02/06/22 02/07/22 02/07/22 18:59 06:59 18:59 Intake Total 367.917 / 837.917 470 / 837.917 250 / 250 Balance 367.917 / 837.917 470 / 837.917 250 / 250 Intake: Intake, Oral Amount 420 / 420 Intake, Tube Feeding Amount 120 / 120 Intake, IV Amount 247.917 / 297.917 50 / 297.917 250 / 250 Azithromycin 500 mg In 0.9 % 247.917 / 247.917 250 / 250 Sodium Chloride 250 ml @ 125 mls/hr IV Q24H [facility] Rx#: [id number] cefTRIAXone sodium 1 gm In 0.9 50 / 50 % Sodium Chloride 50 ml @ 100 mls/hr IV Q24H [facility] Rx#: [id number] Other: Meal Refused No NPO No Breakfast % Eaten 75% Lunch % Eaten 75% Dinner % Eaten 75% Number of Unmeasured Voids 2 2 Urine Bathroom Bedside Commode Urine Color Yellow [place] Weight 143.1 kg - Constitutional Present: moderate distress - Routine HEENT Exam Head: Present: normocephalic Eye: Present: normal appearance ENT: Present: mucous membranes moist - Routine Neck Exam Present: supple - Routine Respiratory Exam Present: CTAB - Routine Cardiovascular Exam Cardiovascular: Present: RRR, S1, S2 - Routine Abdominal Exam Present: normal bowel sounds - Routine Extremities Exam Present: nontender - Routine Skin Exam Present: intact - Routine Neurological Exam Present: alert, oriented X3 - Detailed Neurological Exam: Coma Scale Eye Opening: Spontaneous (4) Verbal Response: Oriented (5) - Routine Psychiatric Exam Present: normal mood Hem/Onc Consult Result - Labs CBC & Chem 7: 02/08/22 06:01 02/08/22 06:01 Assessment and Plan Patient Active problem list reviewed?: Yes (1) Uterine cancer Status: Acute Assessment and plan: 56 year old lady, presented with 5 days history of chest pain, shortness of breath and abdominal pain. She has had postmenopausal bleeding. Imaging revealed: 1. Suboptimal assessment of the pulmonary arteries due to respiratory motion artifact and bolus timing. While no central pulmonary embolus is seen, the segmental and subsegmental vessels are not adequately evaluated, and therefore emboli at these levels cannot be excluded. 2. Innumerable pulmonary masses and nodules throughout both lungs, most suspicious for metastatic disease. 3. Retroperitoneal, pelvic sidewall, and inguinal lymphadenopathy, most suspicious for bismark metastases. Borderline enlarged subcarinal and AP window lymph nodes also noted in the chest. 4. Thickened appearance of the uterine endometrium towards the fundus, raising suspicion for endometrial malignancy given the additional findings in the chest and abdomen. Evaluation with pelvic ultrasound is recommended. 5. Intraluminal hypoattenuation in the bilateral common iliac veins and infrarenal IVC, concerning for intraluminal thrombus. Assessment with vascular ultrasound is recommended. 6. Small amount of free fluid in the abdomen. The proximal inferior vena cava appears patent with venous waveforms. The infrarenal segment appears to have been the region of concern on the previous CT scan, but was suboptimally evaluated. If clinically indicated this could be monitored for change with contrast-enhanced CT scan of the abdomen and pelvis with delayed imaging as indicated. Pelvic ultrasound showed: Uterus: Anteverted/anteflexed measuring 13.8 x 8.0 x 8.5 cm. The endometrium is heterogeneous and hypoechoic measuring up to 3.0 cm at the level the fundus (image 14, series 1). Doppler showed no abnormal vascular flow. The cervix is closed without abnormality. Minimal free fluid in the pelvic cul-de-sac. Right ovary measures 3.0 x 2.3 x 2.5 cm. Volume 9 mL. Mild free fluid in the right adnexa. Left ovary measures 4.0 x 3.2 x 3.1 cm. Volume 20.1 mL. Urinary bladder: Minimally distended without focal abnormality. Patient underwent endometrial biopsy on 02/[address] Mancilla. PLAN: Will wait for the final results. Further plan will be made in light of the above. There is a question of infrarenal IVC and bilateral common iliac venous clots. Would proceed with CT scan with contrast with delayed imaging, for further evaluation, If endometrial carcinoma with pulmonary metastases are confirmed. She would be a candidate for systemic chemotherapy. Will check baseline tumor markers, to follow disease activity. CEA 463, Ca 125: 93. This was discussed with the patient. All her questions answered to his satisfaction. Thank you, CAT SCAN revealed: IVC thrombosis. Started on Eliquis. Cc: - Time Spent With Patient Time Spent with Patient (in minutes): 30
[2022-02-07] MEDS: guaiFENesin 100 MG/5 ML LIQUID PO (14:43)
--- NOTE | 2022-02-07 15:06 | HO.PM.IMPN ---
Subjective Subjective Date of Service: 02/07/22 Interval History: This history was taken in Bengali from the patient. vaginal bleeding resolved chest pain resolved Review of Systems Review of Systems: Yes all other systems are reviewed and are negative Physical Exam Vital Signs: Vital Signs: Last Vital Signs Temp 98.4 F 02/07/22 08:00 Pulse 102 H 02/07/22 08:00 Resp 22 H 02/07/22 08:00 BP 125/77 02/07/22 08:00 Pulse Ox 93 02/07/22 08:00 O2 Del Method 02/07/22 08:00 O2 Flow Rate 2 02/07/22 08:00 BMI result Body Mass Index 52.4 Gen: in no acute distress HEENT: sclera anicteric, moist mucus membranes Neck: supple Lungs: clear to auscultation bilaterally Heart: regular rate and rhythm, no murmurs Abd: soft, non-tender, non-distended Ext: no edema Skin: warm/well-perfused Neuro: alert and oriented x3, no focal findings Psych: appropriate affect Objective Data Active Medications Acetaminophen (Acetaminophen 325 Mg Tablet) 650 mg PO Q6H PRN PRN Reason: Pain, Mild (Pain Scale 1-3) Last Admin: 02/06/22 03:19 Dose: 650 mg Documented By: JUAN PABLO Docusate Sodium (Docusate Sodium 100 Mg Capsule) 100 mg PO DAILY PRN PRN Reason: Constipation Guaifenesin (Guaifenesin 100 Mg/5 Ml Liquid) 5 ml PO Q6H PRN PRN Reason: Cough Last Admin: 02/07/22 14:43 Dose: 5 ml Documented By: SIMON Heparin Sodium (Porcine) (Heparin Sodium,Porcine 5,000 Unit/Ml Vial) 5,000 unit SUBCUT Q12H [facility] Last Admin: 02/07/22 06:21 Dose: 5,000 unit Documented By: JUAN PABLO Ceftriaxone Sodium 1 gm/ (Sodium Chloride) 50 mls @ 100 mls/hr IV Q24H [facility] Last Infusion: 02/07/22 06:55 Dose: 0 mls/hr Documented By: JUAN PABLO Azithromycin 500 mg/ Sodium (Chloride) 250 mls @ 125 mls/hr IV Q24H [facility] Last Infusion: 02/07/22 09:51 Dose: 125 mls/hr Documented By: SIMON Morphine Sulfate (Morphine Sulfate 4 Mg/Ml Cartridge) 4 mg IVPUSH Q4H PRN; Protocol PRN Reason: Pain, Severe (Pain Scale 7-10) Ondansetron HCl (Ondansetron Hcl 4 Mg/2 Ml Vial) 4 mg IVPUSH Q8H PRN PRN Reason: Nausea and Vomiting Sodium Chloride (0.9 % Sodium Chloride Flush 3 Ml Syringe) 3 ml IVFLUSH QSHIFT [facility] Last Admin: 02/07/22 08:24 Dose: Not Given Documented By: SIMON Non-Admin Reason: IV Running Labs CBC & Chem 7: 02/06/22 08:42 02/05/22 11:17 Microbiology Microbiology Results: Microbiology 02/05/22 00:41 Blood Culture - Preliminary Blood - Venous No growth after 48 hours. 02/05/22 00:41 Blood Culture - Preliminary Blood - Venous No growth after 48 hours. Assessment and Plan (1) Postmenopausal bleeding: Status: Acute (2) Chest pain: Status: Acute (3) IVC thrombosis: Status: Acute Plan 56yo F presenting with CP + postmenopausal bleeding admitted for hypoxia found to have pulmonary nodules suspicious for metastatic disease from endocervical lesion # chest pain - resolved, no ACS or PE # acute hypoxic resp failure - likely due to metastases, but on empiric ABX [ceftriaxone + azithromycin d#2], try to wean O2 # question of IVC DVT - repeat CT A/P with contrast # endocervical mass - suspect uterine CA, had biopsy on 02/05, pathology pending, Oncology consulted # VTE ppx: UFH # dispo: anticipate home In my clinical judgment, the patient requires continued inpatient hospitalization for the following reasons: r/o DVT, wean O2 Quality Stroke Does the patient have a stroke diagnosis?: No VTE Prior VTE?: No VTE Risk Level:: Medical - moderate - high VTE Device Contraindication: Treatment Not Indicated VTE Drug Contraindication: N/A - Med Ordered
[2022-02-07 15:44] VITALS: BP 130/84; PULSE 105; RESP 20; TEMP 37.3; O2SAT 92
[2022-02-07 19:01] VITALS: BP 134/81; PULSE 111; RESP 19; TEMP 37.5; O2SAT 92
[2022-02-07] MEDS: iohexoL 350 MG/ML 100 ML INFUS..BTL IV (21:36)
[2022-02-07] MEDS: 0.9 % Sodium Chloride Flush 3 ML SYRINGE IVFLUSH (23:45)
[2022-02-08 04:00] VITALS: BP 111/60; PULSE 105; RESP 20; TEMP 37.1; O2SAT 95
[2022-02-08] MEDS: Heparin Sodium,Porcine 5,000 UNIT/ML VIAL 5000 UNIT SUBCUT (06:05)
[2022-02-08] MEDS: Azithromycin 500 MG in 0.9 % Sodium Chloride 250 ML 125 MG IV (06:06)
[2022-02-08] MEDS: guaiFENesin 100 MG/5 ML LIQUID PO (07:09)
[2022-02-08 07:40] LABS: MANUAL DIFF FLAG NO
[2022-02-08 07:58] LABS: Basophils Percent Auto 0.2 % (0-2); Eosinophils Absolute Auto 0.2 X10*3/uL (0.0-0.4); Eosinophils Percent Auto 1.7 % (0-4); Hematocrit 32.2 % (37.0-47.0); Hemoglobin 10.4 g/dl (12.0-16.0); Imm Gran Abs Auto 0.07 X10*3/uL (0.00-0.03); Imm Gran Pct Auto 0.5 % (0.0-0.4); Lymphocytes Absolute Auto 1.9 X10*3/uL (1.2-4.9); Lymphocytes Percent Auto 15.2 % (20-40); Mean Corpuscular HGB Conc 32.3 g/dl (31.0-35.0); Mean Corpuscular Volume 74.4 fL (80.0-98.0); Mean Platelet Volume 11.2 fL (9.4-12.3); Monocytes Absolute Auto 1.3 X10*3/uL (0.1-1.2); Monocytes Percent Auto 10.4 % (2-11); Neutrophils Absolute Auto 9.2 x10*3/uL (2.0-8.3); Platelet Count 426 X10*3/uL (160-400); Red Blood Count 4.33 X10*6/uL (4.20-5.50); Red Cell Distribution Width 16.6 % (11.0-16.0); White Blood Count 12.8 X10*3/uL (4.8-10.8)
[2022-02-08 08:00] VITALS: BP 131/79; PULSE 101; RESP 19; TEMP 36.7; O2SAT 94
[2022-02-08 08:05] LABS: Alanine Aminotransferase 14 U/L (0-31); Albumin Level 3.2 g/dL (3.5-5.0); Alkaline Phosphatase 59 U/L (39-117); Anion Gap 16 (12-20); Aspartate Amino Transferase 17 U/L (5-31); Blood Urea Nitrogen 14 mg/dL (9-16); Calcium 9.1 mg/dL (8.4-10.2); Carbon Dioxide 25 mmol/L (22-29); Chloride 101 mmol/L (96-108); Creatinine Clr Calc Pharmacy 142.8; Estimated Glomerular Filt Rate > 60; Glucose Random 92 mg/dL (60-115); Potassium 4.6 mmol/L (3.3-5.1); Sodium 137 mmol/L (135-145); Total Protein 6.9 g/dL (6.5-8.0)
[2022-02-08] MEDS: cefTRIAXone sodium 1 GM in 0.9 % Sodium Chloride 50 ML IV (08:10)
[2022-02-08 08:29] LABS: Bilirubin Total 0.4 mg/dL (0.0-1.0)
[2022-02-08] MEDS: 0.9 % Sodium Chloride Flush 3 ML SYRINGE IVFLUSH ×3 (08:54→21:44)
[2022-02-08 14:21] VITALS: BMI 52.4
--- NOTE | 2022-02-08 14:27 | P.PNHO-ONC_ITS ---
Medical Summary - Medical Summary Date of Service: 02/08/22 Chief complaint: Follow-up for: Uterine carcinoma. Medical Summary: DIAGNOSIS: UTERINE MASS. PULMONARY NODULES. Interval History Interval history: Hina Finley is a pleasant 56 year old lady, she is feeling better. Abdominal and back pain are under control. Denies nausea or vomiting. Still has ongoing vaginal bleeding. PRESENTING HISTORY: She presented to the hospital with complaints of chest pain radiating to the abdomen and legs. She describes an chest pain as air stuck in the chest. Her symptoms started 4-5 days ago. She has had upper respiratory symptoms including cough, increased sputum production. She is also complaining of feeling febrile having shortness of breath and chills. Patient also reported intermittant vaginal bleed for the past 5 months. Patient reports lower abdominal pain that has been going on for the past 5 months as well. She is postmenopausal. She denies any nausea vomiting,nor weight loss. She has constipation, denies any urinary symptoms, no lower extremity edema. She was found to have a temperature of 99.1 degrees, respiratory rate of 20, heart rate of 116, blood pressure 157/104, respiratory rate currently in the 30s . Patient reported to have become hypoxic dropping to the mid 70s on room air. Labs are significant for WBC count of 16.3, INR of 1.2, lactic acid of 2.1 improved after IV fluids Imaging including CT angiogram of the chest as well as abdomen pelvic CT shows poor study for PE. She has innumerable pulmonary masses and nodules throughout both lungs most suspicious for metastatic disease, she also has retroperitoneal, pelvic sidewall, and we lymphadenopathy most suspicious for bismark metastasis. Thickened appearance of the uterine endometrium towards the fundus raising suspicion for endometrial malignancy, patient also has intraluminal air hypoattenuation in the bilateral common iliac veins and in for all renal IVC concerning for intraluminal thrombus. Review of Systems Review of Systems: She is feeling better now. She presented with chest pain and abdominal pain. She had back pain on the right side. She had vaginal bleeding. No clots but fresh blood in which was quite a bit. She had some cold symptoms. Denies headache no dizziness. She has a good appetite however does admit to weight loss. All other systems are reviewed and are negative PMFSH Medical History: High cholesterol Family History: family history of throat cancer in cousin. Surgical History: No pertinent past surgical history Social History: She worked in a [employer]. She is . She has 3 children. Denies smoking. Alcohol intake: never Patient Tobacco Use Status: Never used Tobacco Smoked in Last 30 Days: No Use of substances other than those prescribed or required for medical reasons: No Advance Directives: No Advance Directives Information Provided: Yes Current occupational status: unemployed Review of Systems - Constitutional Reports system reviewed and no additional complaints, except as documented - Eyes Reports system reviewed and no additional complaints, except as documented - ENT Reports system reviewed and no additional complaints, except as documented - Cardiovascular Reports system reviewed and no additional complaints, except as documented - Respiratory Reports no additional respiratory complaints - Gastrointestinal Reports system reviewed and no additional complaints, except as documented - Genitourinary Reports no additional female genitourinary complaints - Musculoskeletal Reports system reviewed and no additional complaints, except as documented - Integumentary/Breasts Skin/Breast: Reports no additional skin complaints - Neurologic Reports system reviewed and no additional complaints, except as documented, Reports weakness - Psychiatric Reports system reviewed and no additional complaints, except as documented - Endocrine Reports no additional endocrine complaints - Hematologic/Lymphatic Reports system reviewed and no additional complaints, except as documented - Allergic/Immunologic Reports system reviewed and no additional complaints, except as documented PMFSH Medical History: Medical History (Last Reviewed 02/05/22 @ 06:11 by Boo Alejandro MD) High cholesterol Functional capacity: wheelchair bound Patient : No Family History: Family History (Last Updated 02/05/22 @ 06:11 by Boo Alejandro MD) Other No family history of cancer Surgical History: Surgical History (Last Updated 02/05/22 @ 06:13 by Boo Alejandro MD) No pertinent past surgical history Social History: Social History (Last Updated 02/05/22 @ 06:13 by Boo Alejandro MD) Living Situation History: Household Members: Family Housing: House Do you presently have visiting nurse or other home services: No Tobacco History: Patient Tobacco Use Status: Never used Tobacco Occupation Assessmet: service: No Current occupational status: unemployed 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 Medications and Allergies Current Medications: Current Medications Acetaminophen (Acetaminophen 325 Mg Tablet) 650 mg PO Q6H PRN PRN Reason: Pain, Mild (Pain Scale 1-3) Last Admin: 02/06/22 03:19 Dose: 650 mg Docusate Sodium (Docusate Sodium 100 Mg Capsule) 100 mg PO DAILY PRN PRN Reason: Constipation Guaifenesin (Guaifenesin 100 Mg/5 Ml Liquid) 5 ml PO Q6H PRN PRN Reason: Cough Last Admin: 02/08/22 07:09 Dose: 5 ml Heparin Sodium (Porcine) (Heparin Sodium,Porcine 5,000 Unit/Ml Vial) 5,000 unit SUBCUT Q12H [facility] Last Admin: 02/08/22 06:05 Dose: 5,000 unit Ceftriaxone Sodium 1 gm/ (Sodium Chloride) 50 mls @ 100 mls/hr IV Q24H [facility] Last Infusion: 02/08/22 08:54 Dose: Infused Azithromycin 500 mg/ Sodium (Chloride) 250 mls @ 125 mls/hr IV Q24H [facility] Last Infusion: 02/08/22 08:12 Dose: Infused Morphine Sulfate (Morphine Sulfate 4 Mg/Ml Cartridge) 4 mg IVPUSH Q4H PRN; Protocol PRN Reason: Pain, Severe (Pain Scale 7-10) Ondansetron HCl (Ondansetron Hcl 4 Mg/2 Ml Vial) 4 mg IVPUSH Q8H PRN PRN Reason: Nausea and Vomiting Sodium Chloride (0.9 % Sodium Chloride Flush 3 Ml Syringe) 3 ml IVFLUSH QSHIFT [facility] Last Admin: 02/08/22 08:54 Dose: 3 ml Allergies Allergy/AdvReac Type Severity Reaction Status Date / Time No Known Allergies Allergy Verified 02/04/22 22:30 Exam Vital signs: Vital Signs Temp 98.1 F 02/08/22 08:00 Pulse 101 H 02/08/22 08:00 Resp 19 02/08/22 08:00 BP 131/79 02/08/22 08:00 Pulse Ox 94 02/08/22 08:00 O2 Del Method 02/08/22 08:00 O2 Flow Rate 2.0 02/08/22 08:00 Intake & Output 02/07/22 02/08/22 02/08/22 18:59 06:59 18:59 Intake Total 610 / 1210 600 / 1210 300 / 300 Balance 610 / 1210 600 / 1210 300 / 300 Intake: Intake, Oral Amount 360 / 960 600 / 960 Intake, IV Amount 250 / 250 300 / 300 Azithromycin 500 mg In 0.9 % 250 / 250 250 / 250 Sodium Chloride 250 ml @ 125 mls/hr IV Q24H [facility] Rx#: [id number] cefTRIAXone sodium 1 gm In 0.9 50 / 50 % Sodium Chloride 50 ml @ 100 mls/hr IV Q24H [facility] Rx#: [id number] Other: Meal Refused No NPO No Dinner % Eaten 75% Number of Unmeasured Voids 1 Urine Bedside Commode Last Bowel Movement 02/07/22 Stool Bedside Commode Stool Amount Moderate Weight 143.1 kg Weight 143.1 kg BMI result Body Mass Index 52.4 - Constitutional Present: moderate distress - Routine HEENT Exam Head: Present: normocephalic - Routine Respiratory Exam Present: CTAB - Routine Cardiovascular Exam Cardiovascular: Present: RRR, S1, S2 - Routine Abdominal Exam Present: normal bowel sounds - Routine Extremities Exam Present: nontender - Routine Skin Exam Present: intact - Routine Neurological Exam Present: alert, oriented X3 - Detailed Neurological Exam: Coma Scale Eye Opening: Spontaneous (4) Data - Labs CBC & Chem 7: 02/08/22 06:01 02/08/22 06:01 Labs: 02/04/22 23:32 ECG 12 lead EKG Stat EKG Documentation DIRECTED XR chest 1V Stat 02/04/22 23:45 Basic Metabolic Panel Stat Complete Blood Count Man Dif Stat Liver Panel Stat Troponin-I High Sensitivity Stat 02/05/22 NM pul perfusion Stat US abdomen limited Stat US pelvic and transvaginal Stat 02/05/22 00:29 Add Laboratory Test Stat 02/05/22 00:31 0.9 % Sodium Chloride [Ns] 1,000 ml IV 999 mls/hr 02/05/22 00:35 CT abdomen pelvis w IV con Stat CT angio chest PE protocol Stat 02/05/22 00:36 Piperacillin Sodium/Tazobactam [Zosyn] 3.375 gm 0.9 % Sodium Chloride [Ns] 50 ml IV ONCE 02/05/22 00:41 Lactic Acid Stat 02/05/22 00:50 Partial Thromboplastin Time Stat Prothrombin Time INR Stat SARS-CoV2/FLU/RSV Stat 02/05/22 00:54 Piperacillin Sodium/Tazobactam [Zosyn] 3.375 gm IV .STK-MED ONE 02/05/22 01:44 iohexoL 350 MG/ML [Omnipaque 350 MG/ML] 100 ml IV ONCE ONE 02/05/22 04:32 ~Lactic Acid-LAB USE ONLY Stat 02/05/22 06:24 cefTRIAXone sodium [Rocephin] 1 gm .ROUTE .STK-MED ONE 02/05/22 08:11 Azithromycin [Zithromax] 500 mg IV .STK-MED ONE 02/05/22 11:12 UA w Microscopic Stat 02/05/22 11:17 Basic Metabolic Panel DAILY@0600 Complete Blood Count Man Dif Routine Lactic Acid Stat 02/05/22 13:27 Flu Vacc [id number](6mos up)/PF [Fluarix Quad ] 0.5 ml IM .ONCE ONE 02/05/22 14:38 ~Lactic Acid-LAB USE ONLY Stat 02/06/22 06:03 cefTRIAXone sodium [Rocephin] 1 gm .ROUTE .STK-MED ONE 02/06/22 06:04 Azithromycin [Zithromax] 500 mg IV .STK-MED ONE 02/06/22 08:42 CBC NO DIFF [Complete Blood Count no Diff] Routine 02/07/22 CT abdomen pelvis w IV con Routine 02/07/22 06:03 cefTRIAXone sodium [Rocephin] 1 gm .ROUTE .STK-MED ONE 02/07/22 06:09 Azithromycin [Zithromax] 500 mg IV .STK-MED ONE 02/07/22 21:35 iohexoL 350 MG/ML [Omnipaque 350 MG/ML] 100 ml IV ONCE ONE 02/08/22 06:00 Azithromycin [Zithromax] 500 mg IV .STK-MED ONE 02/08/22 06:01 CEA [Carcinoembryonic Antigen] Routine CMP [Comprehensive Met. Panel] Routine Complete Blood Count Auto Diff Routine 02/08/22 07:53 cefTRIAXone sodium [Rocephin] 1 gm .ROUTE .[facility] ONE Laboratory Last Values WBC 12.8 X10*3/uL (4.8-10.8) H 02/08/22 06:01 RBC 4.33 X10*6/uL (4.20-5.50) 02/08/22 06:01 Hgb 10.4 g/dl (12.0-16.0) L 02/08/22 06:01 Hct 32.2 % (37.0-47.0) L 02/08/22 06:01 MCV 74.4 fL (80.0-98.0) L 02/08/22 06:01 MCH 24.0 pg (27.0-33.0) L 02/08/22 06:01 MCHC 32.3 g/dl (31.0-35.0) 02/08/22 06:01 RDW 16.6 % (11.0-16.0) H 02/08/22 06:01 Plt Count 426 X10*3/uL (160-400) H 02/08/22 06:01 MPV 11.2 fL (9.4-12.3) 02/08/22 06:01 Immature Gran % (Auto) 0.5 % (0.0-0.4) H 02/08/22 06:01 Neut % (Auto) 72.0 % (45-73) 02/08/22 06:01 Lymph % (Auto) 15.2 % (20-40) L 02/08/22 06:01 [place] % (Auto) 10.4 % (2-11) 02/08/22 06:01 Eos % (Auto) 1.7 % (0-4) 02/08/22 06:01 Baso % (Auto) 0.2 % (0-2) 02/08/22 06:01 Lymph # (Auto) 1.9 X10*3/uL (1.2-4.9) 02/08/22 06:01 [place] # (Auto) 1.3 X10*3/uL (0.1-1.2) H 02/08/22 06:01 Eos # (Auto) 0.2 X10*3/uL (0.0-0.4) 02/08/22 06:01 Baso # (Auto) 0.0 X10*3/uL (0.0-0.2) 02/08/22 06:01 Abs Immat Gran (auto) 0.07 X10*3/uL (0.00-0.03) H 02/08/22 06:01 Absolute Neuts (auto) 9.2 x10*3/uL (2.0-8.3) H 02/08/22 06:01 Absolute Nucleated RBC 0.000 X10*3/uL (0.0-0.012) 02/08/22 06:01 Nucleated RBC % (auto) 0.0 /100WBC (0.0-0.2) 02/08/22 06:01 Neutrophils % (Manual) 83 % (45-73) H 02/05/22 11:17 Band Neutrophils % 2 % (3-5) L 02/05/22 11:17 Lymphocytes % (Manual) 10 % (20-40) L 02/05/22 11:17 Atypical Lymphs % (Man) 1 % (0-6) 02/04/22 23:45 Monocytes % (Manual) 5 % (2-11) 02/05/22 11:17 Abs Neuts (Manual) 13.6 X10*3/uL (2.0-8.3) H 02/05/22 11:17 Lymphocytes # (Manual) 1.6 X10*3/uL (1.2-4.9) 02/05/22 11:17 Atyp Lymphs # (Manual) 0.2 x10*3/uL 02/04/22 23:45 Monocytes # (Manual) 0.8 X10*3/uL (0.1-1.2) 02/05/22 11:17 Toxic Vacuolation PRESENT 02/04/22 23:45 Platelet Estimate SLIGHTLY INCREASED (NORMAL) 02/05/22 11:17 Large Platelets PRESENT 02/04/22 23:45 Plt Morphology Comment NORMAL 02/05/22 11:17 RBC Morphology NOTED 02/05/22 11:17 Polychromasia 1+ (0-2) /OIF 02/04/22 23:45 Hypochromasia 1+ (5-14) /OIF 02/05/22 11:17 Microcytosis 1+ (5-14) /OIF 02/05/22 11:17 Target Cells 1+ (5-14) /OIF 02/05/22 11:17 Ordonez-Cowley Bodies PRESENT 02/04/22 23:45 Acanthocytes (Spur) 2+ (3-5) /OIF 02/05/22 11:17 Rouleaux PRESENT 02/04/22 23:45 PT 14.0 SEC (10.0-13.1) H 02/05/22 00:50 INR 1.2 (0.9-1.1) H 02/05/22 00:50 APTT 23.6 SEC (26.0-36.4) L 02/05/22 00:50 Sodium 137 mmol/L (135-145) 02/08/22 06:01 Potassium 4.6 mmol/L (3.3-5.1) 02/08/22 06:01 Chloride 101 mmol/L (96-108) 02/08/22 06:01 Carbon Dioxide 25 mmol/L (22-29) 02/08/22 06:01 Anion Gap 16 (12-20) 02/08/22 06:01 BUN 14 mg/dL (9-16) 02/08/22 06:01 Creatinine 0.65 mg/dL (0.5-1.4) 02/08/22 06:01 Estim Creat Clear Calc 142.8 02/08/22 06:01 Estimated GFR > 60 02/08/22 06:01 Random Glucose 92 mg/dL (60-115) 02/08/22 06:01 Lactic Acid 2.7 mmol/L (0.5-2.0) H* 02/05/22 11:17 Lactic Acid F/U @ 2Hr 2.0 mmol/L (0.5-2.0) 02/05/22 14:38 Calcium 9.1 mg/dL (8.4-10.2) 02/08/22 06:01 Total Bilirubin 0.4 mg/dL (0.0-1.0) 02/08/22 06:01 Direct Bilirubin 0.2 mg/dL (0.0-0.5) 02/04/22 23:45 AST 17 U/L (5-31) 02/08/22 06:01 ALT 14 U/L (0-31) 02/08/22 06:01 Alkaline Phosphatase 59 U/L (39-117) 02/08/22 06:01 Troponin I High Sens 7.3 ng/L (<3.5-17.0) 02/04/22 23:45 Total Protein 6.9 g/dL (6.5-8.0) 02/08/22 06:01 Albumin 3.2 g/dL (3.5-5.0) L 02/08/22 06:01 Carcinoembryonic Ag 463.60 ng/mL 02/08/22 06:01 Urine Color Dark Yellow 02/05/22 11:12 Urine Appearance Turbid 02/05/22 11:12 Urine pH 5.0 (5.0-9.0) 02/05/22 11:12 Ur Specific [place] >= 1.030 (1.005-1.025) H 02/05/22 11:12 Urine Protein 100 (2+) mg/dL (Neg-Trace) H 02/05/22 11:12 Urine Glucose (UA) Negative mg/dL (Negative) 02/05/22 11:12 Urine Ketones Negative mg/dL (Negative) 02/05/22 11:12 Urine Blood Large (3+) (Negative) H 02/05/22 11:12 Urine Nitrite Negative (Negative) 02/05/22 11:12 Ur Leukocyte Esterase Small (1+) (Negative) H 02/05/22 11:12 Urine RBC 6-10 /HPF (0-2) H 02/05/22 11:12 Urine WBC 6-10 /HPF (0-5) H 02/05/22 11:12 Ur Squamous Epith Cells 3-5 /HPF (0-2) 02/05/22 11:12 Other Crystals Present 02/05/22 11:12 Urine Bacteria None Seen (None Seen) 02/05/22 11:12 Hyaline Casts 0-2 /LPF (0-2) 02/05/22 11:12 Granular Casts Present 02/05/22 11:12 Influenza Type A (PCR) NEGATIVE (Negative) 02/05/22 00:50 Influenza Type B (PCR) NEGATIVE (Negative) 02/05/22 00:50 HPV E6/E7 mRNA Cancelled 02/05/22 10:17 HPV Type 16 Cancelled 02/05/22 10:17 HPV Type 18/45 Cancelled 02/05/22 10:17 RSV RNA Qual (PCR) NEGATIVE (Negative) 02/05/22 00:50 SARS-CoV-2 RNA (RT-PCR) NEGATIVE (Negative) 02/05/22 00:50 - Imaging Radiologist's impression: ITS Impressions Chest X-Ray 02/04/22 23:55 IMPRESSION: Extensive, relatively nodular opacification throughout the lungs, most severe towards the lung bases. Differential considerations include metastatic disease or widespread infectious/inflammatory etiology. If no prior imaging is available, contrast-enhanced CT is advised for further evaluation. Abdomen/Pelvis CT 02/05/22 01:35 IMPRESSION: 1. Suboptimal assessment of the pulmonary arteries due to respiratory motion artifact and bolus timing. While no central pulmonary embolus is seen, the segmental and subsegmental vessels are not adequately evaluated, and therefore emboli at these levels cannot be excluded. 2. Innumerable pulmonary masses and nodules throughout both lungs, most suspicious for metastatic disease. 3. Retroperitoneal, pelvic sidewall, and inguinal lymphadenopathy, most suspicious for bismark metastases. Borderline enlarged subcarinal and AP window lymph nodes also noted in the chest. 4. Thickened appearance of the uterine endometrium towards the fundus, raising suspicion for endometrial malignancy given the additional findings in the chest and abdomen. Evaluation with pelvic ultrasound is recommended. 5. Intraluminal hypoattenuation in the bilateral common iliac veins and infrarenal IVC, concerning for intraluminal thrombus. Assessment with vascular ultrasound is recommended. 6. Small amount of free fluid in the abdomen. This critical result was discussed with Dr. Pollard on 02/05/2022 2:16 AM, and it was ascertained that the content and urgency of the report was understood at the time of direct communication. Chest CTA 02/05/22 01:35 IMPRESSION: 1. Suboptimal assessment of the pulmonary arteries due to respiratory motion artifact and bolus timing. While no central pulmonary embolus is seen, the segmental and subsegmental vessels are not adequately evaluated, and therefore emboli at these levels cannot be excluded. 2. Innumerable pulmonary masses and nodules throughout both lungs, most suspicious for metastatic disease. 3. Retroperitoneal, pelvic sidewall, and inguinal lymphadenopathy, most suspicious for bismark metastases. Borderline enlarged subcarinal and AP window lymph nodes also noted in the chest. 4. Thickened appearance of the uterine endometrium towards the fundus, raising suspicion for endometrial malignancy given the additional findings in the chest and abdomen. Evaluation with pelvic ultrasound is recommended. 5. Intraluminal hypoattenuation in the bilateral common iliac veins and infrarenal IVC, concerning for intraluminal thrombus. Assessment with vascular ultrasound is recommended. 6. Small amount of free fluid in the abdomen. This critical result was discussed with Dr. Pollard on 02/05/2022 2:16 AM, and it was ascertained that the content and urgency of the report was understood at the time of direct communication. Abdomen Ultrasound 02/05/22 07:32 FINDINGS/IMPRESSION: The proximal inferior vena cava appears patent with venous waveforms. The infrarenal segment appears to have been the region of concern on the previous CT scan, but was suboptimally evaluated. If clinically indicated this could be monitored for change with contrast-enhanced CT scan of the abdomen and pelvis with delayed imaging as indicated. Pelvic/Transvag US 02/05/22 07:53 IMPRESSION: 1. Irregular endometrium. No definitive enhancing mass. Sonohysterography and biopsy should be considered. 2. Mild free fluid in the cul-de-sac and right adnexa could be physiologic or secondary to known trace ascites. Pulmonary Perfusion Imaging 02/05/22 09:00 IMPRESSION: Low probability of pulmonary embolism. Heterogeneity diffusely in both lungs is most consistent with diffuse metastatic disease visible on contemporaneous CT scans. Abdomen/Pelvis CT 02/07/22 21:57 IMPRESSION: Enlarged uterus with a hypodense mass within the endometrial canal suggestive of endometrial cancer unless proven otherwise. There is extensive abnormal retroperitoneal and pelvic lymphadenopathy. No change from 02/05/2022 There are multiple moderate-sized metastatic deposits in both lower lobes. There is thrombus visualized in both common iliac veins extending to mid IVC just below the renal veins. It is similar to previous study 02/05/2022. There is mild free fluid in the pelvis with mild peritoneal haziness. Fleischner guidelines were followed. Assessment and Plan Patient Active problem list reviewed?: Yes (1) Uterine cancer Status: Acute Assessment and plan: 56 year old lady, presented with 5 days history of chest pain, shortness of breath and abdominal pain. She has had postmenopausal bleeding. Imaging revealed: 1. Suboptimal assessment of the pulmonary arteries due to respiratory motion artifact and bolus timing. While no central pulmonary embolus is seen, the segmental and subsegmental vessels are not adequately evaluated, and therefore emboli at these levels cannot be excluded. 2. Innumerable pulmonary masses and nodules throughout both lungs, most suspicious for metastatic disease. 3. Retroperitoneal, pelvic sidewall, and inguinal lymphadenopathy, most suspicious for bismark metastases. Borderline enlarged subcarinal and AP window lymph nodes also noted in the chest. 4. Thickened appearance of the uterine endometrium towards the fundus, raising suspicion for endometrial malignancy given the additional findings in the chest and abdomen. Evaluation with pelvic ultrasound is recommended. 5. Intraluminal hypoattenuation in the bilateral common iliac veins and infrarenal IVC, concerning for intraluminal thrombus. Assessment with vascular ultrasound is recommended. 6. Small amount of free fluid in the abdomen. The proximal inferior vena cava appears patent with venous waveforms. The infrarenal segment appears to have been the region of concern on the previous CT scan, but was suboptimally evaluated. If clinically indicated this could be monitored for change with contrast-enhanced CT scan of the abdomen and pelvis with delayed imaging as indicated. Pelvic ultrasound showed: Uterus: Anteverted/anteflexed measuring 13.8 x 8.0 x 8.5 cm. The endometrium is heterogeneous and hypoechoic measuring up to 3.0 cm at the level the fundus (image 14, series 1). Doppler showed no abnormal vascular flow. The cervix is closed without abnormality. Minimal free fluid in the pelvic cul-de-sac. Right ovary measures 3.0 x 2.3 x 2.5 cm. Volume 9 mL. Mild free fluid in the right adnexa. Left ovary measures 4.0 x 3.2 x 3.1 cm. Volume 20.1 mL. Urinary bladder: Minimally distended without focal abnormality. Patient underwent endometrial biopsy on 02/[address] Mancilla. There was a question of infrarenal IVC and bilateral common iliac venous clots. We proceeded with CT scan with contrast with delayed imaging, for further evaluation: Enlarged uterus with a hypodense mass within the endometrial canal suggestive of endometrial cancer unless proven otherwise. There is extensive abnormal retroperitoneal and pelvic lymphadenopathy. No change from 02/05/2022 There are multiple moderate-sized metastatic deposits in both lower lobes. There is thrombus visualized in both common iliac veins extending to mid IVC just below the renal veins. It is similar to previous study 02/05/2022. There is mild free fluid in the pelvis with mild peritoneal haziness. PLAN: Will start her on Eliquis, for the Iliac Vein Thrombus. Will wait for the final pathology results. Further plan will be made in light of the above. If endometrial carcinoma with pulmonary metastases are confirmed. She would be a candidate for systemic chemotherapy. Will check baseline tumor markers, to follow disease activity. CEA 464, Ca125 93. This was discussed with the patient. All her questions answered to his satisfaction. Thank you, Cc: - Time Spent With Patient Time Spent with Patient (in minutes): 25
--- NOTE | 2022-02-08 15:07 | HO.PM.IMPN ---
Subjective Subjective Date of Service: 02/08/22 Interval History: This history was taken in Romanian from the patient. dyspnea + chest pain resolved hypoxia on RA- down to 84% CT shows IVC clot Review of Systems Review of Systems: Yes all other systems are reviewed and are negative Physical Exam Vital Signs: Vital Signs: Last Vital Signs Temp 98.1 F 02/08/22 08:00 Pulse 101 H 02/08/22 08:00 Resp 19 02/08/22 08:00 BP 131/79 02/08/22 08:00 Pulse Ox 94 02/08/22 08:00 O2 Del Method 02/08/22 08:00 O2 Flow Rate 2.0 02/08/22 08:00 BMI result Body Mass Index 52.4 Gen: in no acute distress HEENT: sclera anicteric, moist mucus membranes Neck: supple Lungs: clear to auscultation bilaterally Heart: regular rate and rhythm, no murmurs Abd: soft, non-tender, non-distended, obese Ext: no edema Skin: warm/well-perfused Neuro: alert and oriented x3, no focal findings Psych: appropriate affect Objective Data Active Medications Acetaminophen (Acetaminophen 325 Mg Tablet) 650 mg PO Q6H PRN PRN Reason: Pain, Mild (Pain Scale 1-3) Last Admin: 02/06/22 03:19 Dose: 650 mg Documented By: JUAN PABLO Apixaban (Apixaban 5 Mg Tablet) 10 mg PO BID [facility] Stop: 02/14/22 21:01 Docusate Sodium (Docusate Sodium 100 Mg Capsule) 100 mg PO DAILY PRN PRN Reason: Constipation Guaifenesin (Guaifenesin 100 Mg/5 Ml Liquid) 5 ml PO Q6H PRN PRN Reason: Cough Last Admin: 02/08/22 07:09 Dose: 5 ml Documented By: NGA Ceftriaxone Sodium 1 gm/ (Sodium Chloride) 50 mls @ 100 mls/hr IV Q24H [facility] Last Infusion: 02/08/22 08:54 Dose: 0 mls/hr Documented By: KAILEY Azithromycin 500 mg/ Sodium (Chloride) 250 mls @ 125 mls/hr IV Q24H [facility] Last Infusion: 02/08/22 08:12 Dose: 0 mls/hr Documented By: NGA Morphine Sulfate (Morphine Sulfate 4 Mg/Ml Cartridge) 4 mg IVPUSH Q4H PRN; Protocol PRN Reason: Pain, Severe (Pain Scale 7-10) Ondansetron HCl (Ondansetron Hcl 4 Mg/2 Ml Vial) 4 mg IVPUSH Q8H PRN PRN Reason: Nausea and Vomiting Sodium Chloride (0.9 % Sodium Chloride Flush 3 Ml Syringe) 3 ml IVFLUSH QSHIFT YANG Last Admin: 02/08/22 08:54 Dose: 3 ml Documented By: KAILEY Labs CBC & Chem 7: 02/08/22 06:01 02/08/22 06:01 Labs: Laboratory Results - last 24 hr 02/05/22 02/08/22 02/08/22 10:17 06:01 06:01 MCV 74.4 L MCH 24.0 L MCHC 32.3 RDW 16.6 H Plt Count 426 H MPV 11.2 Immature Gran % (Auto) 0.5 H Neut % (Auto) 72.0 Lymph % (Auto) 15.2 L [place] % (Auto) 10.4 Eos % (Auto) 1.7 Baso % (Auto) 0.2 Lymph # (Auto) 1.9 [place] # (Auto) 1.3 H Eos # (Auto) 0.2 Baso # (Auto) 0.0 Abs Immat Gran (auto) 0.07 H Absolute Neuts (auto) 9.2 H Absolute Nucleated RBC 0.000 Nucleated RBC % (auto) 0.0 Anion Gap 16 Estim Creat Clear Calc 142.8 Estimated GFR > 60 Random Glucose 92 Calcium 9.1 Total Bilirubin 0.4 AST 17 ALT 14 Alkaline Phosphatase 59 Total Protein 6.9 Albumin 3.2 L Carcinoembryonic Ag 463.60 HPV E6/E7 mRNA Cancelled HPV Type 16 Cancelled HPV Type 18/45 Cancelled Impressions Abdomen/Pelvis CT 02/07/22 21:57 IMPRESSION: Enlarged uterus with a hypodense mass within the endometrial canal suggestive of endometrial cancer unless proven otherwise. There is extensive abnormal retroperitoneal and pelvic lymphadenopathy. No change from 02/05/2022 There are multiple moderate-sized metastatic deposits in both lower lobes. There is thrombus visualized in both common iliac veins extending to mid IVC just below the renal veins. It is similar to previous study 02/05/2022. There is mild free fluid in the pelvis with mild peritoneal haziness. Fleischner guidelines were followed. Assessment and Plan (1) Postmenopausal bleeding: Status: Acute (2) Chest pain: Status: Acute (3) IVC thrombosis: Status: Acute Plan d#4 56yo F presenting with CP + postmenopausal bleeding admitted for hypoxia found to have pulmonary nodules suspicious for metastatic disease from endocervical lesion # chest pain - resolved, no ACS or PE # acute hypoxic resp failure - likely due to metastases, but on empiric ABX [ceftriaxone + azithromycin d#3]. home O2 evaluation # malignancy-associated DVT - Heme-Onc consulted, will anticoagulated with apixaban # endocervical mass - suspect uterine CA, had biopsy on 02/05, pathology pending, Oncology consulted and will need outpt f/u # VTE ppx: UFH # dispo: anticipate home but may need oxygen In my clinical judgment, the patient requires continued inpatient hospitalization for the following reasons: hypoxia Quality Stroke Does the patient have a stroke diagnosis?: No VTE Prior VTE?: No VTE Risk Level:: Medical - moderate - high VTE Device Contraindication: Treatment Not Indicated VTE Drug Contraindication: N/A - Med Ordered
--- NOTE | 2022-02-08 15:31 | MHC.CM.PN ---
CALL FROM ROBERTO OF ONCOLOGY WHO TELLS T/W PATIENT HAS A FEB [address] SIM AT 1140 . NOTE WRITTEN IN DC INSTRUCTIONS
[2022-02-08 15:38] VITALS: BP 155/92; PULSE 100; RESP 20; TEMP 36.5; O2SAT 90
[2022-02-08] MEDS: Apixaban 5 MG TABLET 10 MG PO ×2 (16:34→21:43)
[2022-02-08 19:29] VITALS: BP 140/80; PULSE 115; RESP 20; TEMP 36.5; O2SAT 92
[2022-02-09 04:00] VITALS: BP 141/75; PULSE 100; RESP 18; TEMP 36.2; O2SAT 93
[2022-02-09] MEDS: Azithromycin 500 MG in 0.9 % Sodium Chloride 250 ML 125 MG IV (05:49)
[2022-02-09 08:00] VITALS: BP 127/86; PULSE 105; RESP 19; TEMP 36.6; O2SAT 93
[2022-02-09] MEDS: cefTRIAXone sodium 1 GM in 0.9 % Sodium Chloride 50 ML IV (08:16)
[2022-02-09] MEDS: 0.9 % Sodium Chloride Flush 3 ML SYRINGE IVFLUSH (08:34)
[2022-02-09] MEDS: Apixaban 5 MG TABLET 10 MG PO (09:32)
--- NOTE | 2022-02-09 11:29 | P.CDIC_ITS ---
CDI Concurrent Query Documentation Clarification: PHYSICIAN'S DOCUMENTATION REQUEST Date of Query: 02/09/22 1129 Patient Name: Hina Finley Admit Date: 02/05/22 Dear Doctor, A review of the medical record indicates additional documentation may be needed. Please review below and update the documentation accordingly. Clinical Indicators: Risk Factors/Clinical Indicators/Treatments Clinical nutrition notes 02/08- BMI 52.4 5' 5 in height. Extreme obesity class III If possible, please provide an associated diagnosis related to the abnormal BMI, such as: For a BMI >= 40: * Overweight * Obesity * Due to excess calories * Drug induced * Due to other cause * Severe or Morbid Obesity * With alveolar hypoventilation * Without alveolar hypoventilation Use of terms such as suspected, likely, concern for, or probable (associated with a specific diagnosis that is being evaluated, monitored, or treated as if it exists) are acceptable and can be coded in the inpatient setting, when documented at the time of discharge. Thank you, Elda Larson [facility], CDIS Extension: [phone] Please use your independent medical judgment in providing your response. THIS QUERY IS PART OF THE PERMANENT MEDICAL RECORD Provider Response: Other Other Diagnosis: morbid obesity
[2022-02-09 12:42] VITALS: PULSE 101; PULSE 105; PULSE 110; O2SAT 85; O2SAT 90; O2SAT 93
--- NOTE | 2022-02-09 13:33 | P.DS_ITS ---
DS: Providers Provider Date of Service: 02/09/22 Date of admission: 02/05/22 05:59 Primary care physician: Unknown Physician Consults: 02/05/22 05:51 Consult to Obstetrics / Gynecology Routine Consulting Provider: Obey Mancilla Reason for consultation: vaginal bleed, likely uterine malignancy Has provider been notified: No 02/06/22 18:02 Consult to Hematology / Oncology Routine Consulting Provider: Roseanna Sim Reason for consultation: Uterine mass, pulmnary mets Has provider been notified: No DS: Diagnosis Discharge Diagnosis (1) Postmenopausal bleeding: Status: Acute (2) IVC thrombosis: Status: Acute (3) Uterine cancer: Status: Acute (4) Acute respiratory failure with hypoxia: Status: Acute (5) Morbid obesity: Status: Acute DS: Summary Hospital Course Hospital Course: From the history and physical by the admitting hospitalist, Boo Alejandro MD, 02/05/22: this is a 56-year-old female who denies any past medical history presents to the hospital with complaints of chest pain radiating to the abdomen and legs. Patient reports that her symptoms started 3-4 days ago. She has also had upper respiratory symptoms including cough, increased sputum production. She is also complaining of feeling febrile having shortness of breath and chills. On further review of system patient is reporting vaginal bleed for the past 5 months. Intermittent. Patient is postmenopausal. She describes an chest pain as air stuck in the chest. She denies any recent weight loss. Patient reports lower abdominal pain that has been going on for the past 5 months as well. Denies any nausea vomiting, has constipation, denies any urinary symptoms, no lower extremity edema p.r.n. On arrival to the ED patient found to have a temperature of 99.1 degrees, respiratory rate of 20, heart rate of 116, blood pressure 157/104, respiratory rate currently in the 30s . Patient reported to have become hypoxic dropping to the mid 70s on room air. Labs are significant for WBC count of 16.3, INR of 1.2, lactic acid of 2.1 improved after IV fluids Imaging including CT angiogram of the chest as well as abdomen pelvic CT shows poor study for PE but patient has innumerable pulmonary masses and nodules throughout both lungs most suspicious for metastatic disease, she also has retroperitoneal, pelvic sidewall, and we lymphadenopathy most suspicious for bismark metastasis. Thickened appearance of the uterine endometrium towards the fundus raising suspicion for endometrial malignancy, patient also has intraluminal air hypoattenuation in the bilateral common iliac veins and in for all renal IVC concerning for intraluminal thrombus This 56yo F presenting with chest pain + postmenopausal bleeding was admitted for hypoxia and was found to have pulmonary nodules suspicious for metastatic disease from endocervical lesion. Chest pain resolved and there was no evidence of ACS or PE. She could not be weaned from oxygen and was sent home on 3L of oxygen at all times. She was treated with empiric antibiotics for possible pn eumonia, but the hypoxia is most likely due to the pulmonary metastases. Gynecology was consulted and she was found to have a cervical mass obstructing the endocervical canal. Cervical biopsy and endocervical curettage was done. Pathology is pending at the time of discharge. 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 Follow-up with Dr Obey Mancilla from [facility] and Dr Roseanna Sim from [facility] was arranged and the patient will also need to establish primary care as soon as possible. Time Spent with Patient Time attestation: Total time spent providing and/or coordinating discharge services: 35 Discharge coordination time: Greater than 30 minutes Quality: Safe Use of Opioids Does Pt have an Active Cancer Diagnosis on the Problem List?: Yes Opioid Measure Date for [facility] Report: 01/10/22 Opioid Measure Time for [facility] Report: 13:35 Quality: Stroke Does the patient have a stroke diagnosis?: No Physical Exam Vital Signs: Vital Signs: Last Vital Signs Temp 97.9 F 02/09/22 08:00 Pulse 105 H 02/09/22 08:00 Resp 19 02/09/22 08:00 BP 127/86 02/09/22 08:00 Pulse Ox 93 02/09/22 08:00 O2 Del Method 02/09/22 08:00 O2 Flow Rate 2.0 02/09/22 08:00 FiO2 98 02/08/22 19:29 BMI result Body Mass Index 52.4 Gen: in no acute distress HEENT: sclera anicteric, moist mucus membranes Neck: supple Lungs: clear to auscultation bilaterally Heart: regular rate and rhythm, no murmurs Abd: soft, non-tender, non-distended, obese Ext: no edema Skin: warm/well-perfused Neuro: alert and oriented x3, no focal findings Psych: appropriate affect DS: Data Data Completed and Pending Completed studies during hospitalization [Text1]: Laboratory Results WBC 12.8 X10*3/uL (4.8-10.8) H 02/08/22 06:01 RBC 4.33 X10*6/uL (4.20-5.50) 02/08/22 06:01 Hgb 10.4 g/dl (12.0-16.0) L 02/08/22 06:01 Hct 32.2 % (37.0-47.0) L 02/08/22 06:01 MCV 74.4 fL (80.0-98.0) L 02/08/22 06:01 MCH 24.0 pg (27.0-33.0) L 02/08/22 06:01 MCHC 32.3 g/dl (31.0-35.0) 02/08/22 06:01 RDW 16.6 % (11.0-16.0) H 02/08/22 06:01 Plt Count 426 X10*3/uL (160-400) H 02/08/22 06:01 MPV 11.2 fL (9.4-12.3) 02/08/22 06:01 Immature Gran % (Auto) 0.5 % (0.0-0.4) H 02/08/22 06:01 Neut % (Auto) 72.0 % (45-73) 02/08/22 06:01 Lymph % (Auto) 15.2 % (20-40) L 02/08/22 06:01 [place] % (Auto) 10.4 % (2-11) 02/08/22 06:01 Eos % (Auto) 1.7 % (0-4) 02/08/22 06:01 Baso % (Auto) 0.2 % (0-2) 02/08/22 06:01 Lymph # (Auto) 1.9 X10*3/uL (1.2-4.9) 02/08/22 06:01 [place] # (Auto) 1.3 X10*3/uL (0.1-1.2) H 02/08/22 06:01 Eos # (Auto) 0.2 X10*3/uL (0.0-0.4) 02/08/22 06:01 Baso # (Auto) 0.0 X10*3/uL (0.0-0.2) 02/08/22 06:01 Abs Immat Gran (auto) 0.07 X10*3/uL (0.00-0.03) H 02/08/22 06:01 Absolute Neuts (auto) 9.2 x10*3/uL (2.0-8.3) H 02/08/22 06:01 Absolute Nucleated RBC 0.000 X10*3/uL (0.0-0.012) 02/08/22 06:01 Nucleated RBC % (auto) 0.0 /100WBC (0.0-0.2) 02/08/22 06:01 Neutrophils % (Manual) 83 % (45-73) H 02/05/22 11:17 Band Neutrophils % 2 % (3-5) L 02/05/22 11:17 Lymphocytes % (Manual) 10 % (20-40) L 02/05/22 11:17 Atypical Lymphs % (Man) 1 % (0-6) 02/04/22 23:45 Monocytes % (Manual) 5 % (2-11) 02/05/22 11:17 Abs Neuts (Manual) 13.6 X10*3/uL (2.0-8.3) H 02/05/22 11:17 Lymphocytes # (Manual) 1.6 X10*3/uL (1.2-4.9) 02/05/22 11:17 Atyp Lymphs # (Manual) 0.2 x10*3/uL 02/04/22 23:45 Monocytes # (Manual) 0.8 X10*3/uL (0.1-1.2) 02/05/22 11:17 Toxic Vacuolation PRESENT 02/04/22 23:45 Platelet Estimate SLIGHTLY INCREASED (NORMAL) 02/05/22 11:17 Large Platelets PRESENT 02/04/22 23:45 Plt Morphology Comment NORMAL 02/05/22 11:17 RBC Morphology NOTED 02/05/22 11:17 Polychromasia 1+ (0-2) /OIF 02/04/22 23:45 Hypochromasia 1+ (5-14) /OIF 02/05/22 11:17 Microcytosis 1+ (5-14) /OIF 02/05/22 11:17 Target Cells 1+ (5-14) /OIF 02/05/22 11:17 Ordonez-Knierim Bodies PRESENT 02/04/22 23:45 Acanthocytes (Spur) 2+ (3-5) /OIF 02/05/22 11:17 Rouleaux PRESENT 02/04/22 23:45 PT 14.0 SEC (10.0-13.1) H 02/05/22 00:50 INR 1.2 (0.9-1.1) H 02/05/22 00:50 APTT 23.6 SEC (26.0-36.4) L 02/05/22 00:50 Sodium 137 mmol/L (135-145) 02/08/22 06:01 Potassium 4.6 mmol/L (3.3-5.1) 02/08/22 06:01 Chloride 101 mmol/L (96-108) 02/08/22 06:01 Carbon Dioxide 25 mmol/L (22-29) 02/08/22 06:01 Anion Gap 16 (12-20) 02/08/22 06:01 BUN 14 mg/dL (9-16) 02/08/22 06:01 Creatinine 0.65 mg/dL (0.5-1.4) 02/08/22 06:01 Estim Creat Clear Calc 142.8 02/08/22 06:01 Estimated GFR > 60 02/08/22 06:01 Random Glucose 92 mg/dL (60-115) 02/08/22 06:01 Lactic Acid 2.7 mmol/L (0.5-2.0) H* 02/05/22 11:17 Lactic Acid F/U @ 2Hr 2.0 mmol/L (0.5-2.0) 02/05/22 14:38 Calcium 9.1 mg/dL (8.4-10.2) 02/08/22 06:01 Total Bilirubin 0.4 mg/dL (0.0-1.0) 02/08/22 06:01 Direct Bilirubin 0.2 mg/dL (0.0-0.5) 02/04/22 23:45 AST 17 U/L (5-31) 02/08/22 06:01 ALT 14 U/L (0-31) 02/08/22 06:01 Alkaline Phosphatase 59 U/L (39-117) 02/08/22 06:01 Troponin I High Sens 7.3 ng/L (<3.5-17.0) 02/04/22 23:45 Total Protein 6.9 g/dL (6.5-8.0) 02/08/22 06:01 Albumin 3.2 g/dL (3.5-5.0) L 02/08/22 06:01 Carcinoembryonic Ag 463.60 ng/mL 02/08/22 06:01 Urine Color Dark Yellow 02/05/22 11:12 Urine Appearance Turbid 02/05/22 11:12 Urine pH 5.0 (5.0-9.0) 02/05/22 11:12 Ur Specific [place] >= 1.030 (1.005-1.025) H 02/05/22 11:12 Urine Protein 100 (2+) mg/dL (Neg-Trace) H 02/05/22 11:12 Urine Glucose (UA) Negative mg/dL (Negative) 02/05/22 11:12 Urine Ketones Negative mg/dL (Negative) 02/05/22 11:12 Urine Blood Large (3+) (Negative) H 02/05/22 11:12 Urine Nitrite Negative (Negative) 02/05/22 11:12 Ur Leukocyte Esterase Small (1+) (Negative) H 02/05/22 11:12 Urine RBC 6-10 /HPF (0-2) H 02/05/22 11:12 Urine WBC 6-10 /HPF (0-5) H 02/05/22 11:12 Ur Squamous Epith Cells 3-5 /HPF (0-2) 02/05/22 11:12 Other Crystals Present 02/05/22 11:12 Urine Bacteria None Seen (None Seen) 02/05/22 11:12 Hyaline Casts 0-2 /LPF (0-2) 02/05/22 11:12 Granular Casts Present 02/05/22 11:12 Influenza Type A (PCR) NEGATIVE (Negative) 02/05/22 00:50 Influenza Type B (PCR) NEGATIVE (Negative) 02/05/22 00:50 HPV E6/E7 mRNA Cancelled 02/05/22 10:17 HPV Type 16 Cancelled 02/05/22 10:17 HPV Type 18/45 Cancelled 02/05/22 10:17 RSV RNA Qual (PCR) NEGATIVE (Negative) 02/05/22 00:50 SARS-CoV-2 RNA (RT-PCR) NEGATIVE (Negative) 02/05/22 00:50 Impressions Chest X-Ray 02/04/22 23:55 IMPRESSION: Extensive, relatively nodular opacification throughout the lungs, most severe towards the lung bases. Differential considerations include metastatic disease or widespread infectious/inflammatory etiology. If no prior imaging is available, contrast-enhanced CT is advised for further evaluation. Chest CTA 02/05/22 01:35 IMPRESSION: 1. Suboptimal assessment of the pulmonary arteries due to respiratory motion artifact and bolus timing. While no central pulmonary embolus is seen, the segmental and subsegmental vessels are not adequately evaluated, and therefore emboli at these levels cannot be excluded. 2. Innumerable pulmonary masses and nodules throughout both lungs, most suspicious for metastatic disease. 3. Retroperitoneal, pelvic sidewall, and inguinal lymphadenopathy, most suspicious for bismark metastases. Borderline enlarged subcarinal and AP window lymph nodes also noted in the chest. 4. Thickened appearance of the uterine endometrium towards the fundus, raising suspicion for endometrial malignancy given the additional findings in the chest and abdomen. Evaluation with pelvic ultrasound is recommended. 5. Intraluminal hypoattenuation in the bilateral common iliac veins and infrarenal IVC, concerning for intraluminal thrombus. Assessment with vascular ultrasound is recommended. 6. Small amount of free fluid in the abdomen. This critical result was discussed with Dr. Pollard on 02/05/2022 2:16 AM, and it was ascertained that the content and urgency of the report was understood at the time of direct communication. Abdomen Ultrasound 02/05/22 07:32 FINDINGS/IMPRESSION: The proximal inferior vena cava appears patent with venous waveforms. The infrarenal segment appears to have been the region of concern on the previous CT scan, but was suboptimally evaluated. If clinically indicated this could be monitored for change with contrast-enhanced CT scan of the abdomen and pelvis with delayed imaging as indicated. Pelvic/Transvag US 02/05/22 07:53 IMPRESSION: 1. Irregular endometrium. No definitive enhancing mass. Sonohysterography and biopsy should be considered. 2. Mild free fluid in the cul-de-sac and right adnexa could be physiologic or secondary to known trace ascites. Pulmonary Perfusion Imaging 02/05/22 09:00 IMPRESSION: Low probability of pulmonary embolism. Heterogeneity diffusely in both lungs is most consistent with diffuse metastatic disease visible on contemporaneous CT scans. Abdomen/Pelvis CT 02/07/22 21:57 IMPRESSION: Enlarged uterus with a hypodense mass within the endometrial canal suggestive of endometrial cancer unless proven otherwise. There is extensive abnormal retroperitoneal and pelvic lymphadenopathy. No change from 02/05/2022 There are multiple moderate-sized metastatic deposits in both lower lobes. There is thrombus visualized in both common iliac veins extending to mid IVC just below the renal veins. It is similar to previous study 02/05/2022. There is mild free fluid in the pelvis with mild peritoneal haziness. Fleischner guidelines were followed. Pending studies at discharge: Pending at discharge 02/05/22 10:15 Surgical [PTH] Routine 02/08/22 09:47 Pap Smear [PTH] Routine 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] hypoxic respiratory failure Referrals: [facility] [Provider Group] - 1 Week Roseanna Sim MD [Physician] - 1 Week (FEBRUARY 16, [address] SIM @ 1140 A.M.) Obey Mancilla MD [Physician] - 1 Week Discharge Medications: New cefuroxime axetil 500 mg tablet 500 mg PO BID Qty: 8 0RF Eliquis DVT-PE Treat 30D Start 5 mg (74 tabs) tablets,dose pack See Rx Instructions .ROUTE .COMPLEX Qty: 74 0RF Rx Instructions: 2 tabs PO bid x 7 days, then 1 tab PO bid Discontinued ibuprofen 200 mg Tablet 200 mg PO Q6H PRN (Reason: Pain) Discharge Orders: Discharge Order (Routine); Ordered 02/09/22 Ordered By: Gabriela Gaytan Diet: Advance to usual diet Activity on Discharge: As tolerated Stand Alone Forms: Patient Portal Discharge page Care Plan Goals: diagnosis and treatment of 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 treatment of IVC thrombus [deep vein thrombosis] treatment of hypoxia Health Concerns: 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 IVC thrombus [deep vein thrombosis] hypoxic respiratory failure Plan of Treatment: take apixaban 10 mg twice daily [two 5 mg tabs] for 7 days, then 5 mg twice daily indefinitely take cefuroxime 500 mg twice daily for 4 days for treatment of possible pneumonia use oxygen 3 liters at all times establish primary care as soon as possible follow up as scheduled with: 1) [facility] [address] [address] 2) [facility] [address] [place] [address], [address] [place], [place] [id number] Assessment: See Discharge Summary.
--- NOTE | 2022-02-09 14:16 | MHC.CM.PN ---
PATIENT IS DC TODAY WITH OUTPATIENT ONCOLOGY FOLLOW UP. INSTRUCTIONS WRITTEN IN DC PACKET INFO. SON TO TRANSPORT FOR 1630. RN AWARE OF PLAN.
[2022-02-10 08:58] LABS: CA-125 93 U/mL (<35)
[2022-02-10 11:58] LABS: HPV mRNA E6/E7 Not Detected (Not Detected)
== END 2022-02-09 16:20 | disposition home or self-care (01) | DRG 530 ==
LOC: HO.ED 02-05 03:47 → HO.EDOVER 02-05 06:08 → HO.S3 02-05 11:55
PROVIDERS: Internal Medicine; Internal Medicine Medical Oncology; Obstetrics & Gynecology; Admitting Provider Internal Medicine; Emergency Provider Internal Medicine; Visit Provider Family Medicine
DX: C54.1 Malignant neoplasm of endometrium (principal); J96.01 Acute respiratory failure with hypoxia; I82.220 Acute embolism and thrombosis of inferior vena cava; C78.01 Secondary malignant neoplasm of right lung; C77.2 Secondary and unspecified malignant neoplasm of intra-abdominal lymph nodes; J18.9 Pneumonia, unspecified organism; I82.423 Acute embolism and thrombosis of iliac vein, bilateral; C78.02 Secondary malignant neoplasm of left lung; Z68.43 Body mass index [BMI] 50.0-59.9, adult; E66.01 Morbid (severe) obesity due to excess calories; E78.00 Pure hypercholesterolemia, unspecified; Z20.822 Contact with and (suspected) exposure to COVID-19; Z56.0 Unemployment, unspecified; Z23 Encounter for immunization
CPT/HCPCS: 0241U; 36415; 71045; 71275; 74177; 76705; 76830; 76856; 78580; 80048; 80053; 80076; 81001; 82378; 83605; 84484; 85007; 85025; 85027; 85610; 85730; 86304; 87040; 87624; 88142; 88305; 88341; 88342; 88360; 90686; 93005; 99285; A9540; J0456; J0696; J2543; Q9967

== ENCOUNTER → 2022-02-15 14:54 | Outpatient (BNVA) | payer OTHER, SELFPAY | PROVIDERS: Visit Provider Obstetrics & Gynecology | DX: C80.1 Malignant (primary) neoplasm, unspecified (principal); E78.00 Pure hypercholesterolemia, unspecified | CPT/HCPCS: 99212 ==